=== PATIENT | male | born 1955 | race Caucasian/White ===

== ENCOUNTER 2019-12-06 13:10 | Emergency (ER) | payer BC, SELFPAY ==
[2019-12-06] VITALS (9 sets, daily range): BP systolic 77–111; BP diastolic 47–63; PULSE 42–66; RESP 12–20; TEMP 36.8; O2SAT 95–98
--- NOTE | ~2019-12-06 | XR_ITS ---
EXAMINATION: XR chest 2V DATE: 12/06/2019 14:31 INDICATION: Chest pain. TECHNIQUE: Frontal and lateral views of the chest were obtained. COMPARISON: Chest 2 views 06/09/2018 FINDINGS: There is mild atelectasis in lingula. No pleural effusion or pneumothorax. The heart size i s normal. IMPRESSION: 1. Mild atelectasis in lingula. Reviewed, dictated and finalized at location A. EILLANCE DIRECTOR
--- NOTE | 2019-12-06 13:14 | ECG_ITS ---
Measurements Intervals [place] Rate: 52 P: 5 [place]: 175 QRS: -15 QRSD: 106 T: 0 QT: 355 QTc: 332 Interpretive Statements SINUS BRADYCARDIA DELAYED PRECORDIAL R/S TRANSITION NONSPECIFIC T-WAVE ABNORMALITY- INFERIOR LEADS BORDERLINE ECG Electronically Signed On 12-06-2019 14:17:04 WORD PROCESSOR TECHNICIAN by Eldon Winters D.O.
--- NOTE | 2019-12-06 13:16 | ED.CHESTPAIN ---
HPI - Chest Pain General Chief Complaint: Chest Pain Stated Complaint: sob chest pain Time Seen by Provider: 12/06/19 13:16 Source: patient Mode of arrival: ambulatory Limitations: no limitations History of Present Illness HPI narrative: Patient states that he had 2 very stressful situations this morning related to his job. Following these he tried to do different maneuvers as he had in the past for episodes of going into atrial fibrillations. None of them seem to help. He says he just feels a pressure on his chest. Nothing makes it worse or better. Mildly short of breath but otherwise no other associated symptoms. MD complaint: chest heaviness Pertinent past history: other (AFIB) Onset (ago): hour(s) (2) Timing of current episode: constant Prior episodes: Yes Onset: during rest Pain location: substernal Pain radiation: left arm Severity: moderate Quality: heaviness Relieving factors: nothing Exacerbating factors: nothing Treatment prior to arrival: none Related Data Home Medications Medication Instructions Recorded Confirmed amiodarone 200 mg PO DAILY 12/06/19 12/06/19 atorvastatin 10 mg PO DAILY 12/06/19 12/06/19 olmesartan 40 mg PO DAILY 12/06/19 12/06/19 warfarin 5 mg PO 5XW 12/06/19 12/06/19 warfarin 7.5 mg PO 2XW 12/06/19 12/06/19 Allergies Allergy/AdvReac Type Severity Reaction Status Date / Time No Known Allergies Allergy Unknown Unverified 06/09/18 17:07 Review of Systems Constitutional: Constitutional: Denies chills and Denies fever(s) Eyes: Eyes: Reports no additional eye complaints ENT: Reports system reviewed and no additional complaints, except as documented Respiratory: Respiratory: Denies chest congestion, Denies cough, Denies dyspnea and Denies wheezing Gastrointestinal: Gastrointestinal: Denies diarrhea, Denies nausea and Denies vomiting Musculoskeletal: Musculoskeletal: Reports no additional musculoskeletal complaints Neurologic: Reports dizziness and Denies syncope Psychiatric: Psychiatric: Reports no additional psychiatric complaints Endocrine: Endocrine: Reports no additional endocrine complaints [facility] Past Medical History Medical History (Updated 12/06/19 @ 15:38 by Estuardo Jackman MD) Atrial fibrillation Hyperlipidemia Hypertension Surgical History Surgical History (Updated 12/06/19 @ 15:38 by Estuardo Jackman MD) History of ankle surgery Hx of inguinal hernia surgery Social History Social History (Updated 12/06/19 @ 15:40 by Estuardo Jackman MD) Smoking status: Never smoker Alcohol intake: current Alcohol use details: Occasional Substance use: never Gender identity (if verbalized by the patient): Male Exam Const: General: healthy appearing and no acute distress Nutritional Appearance: well nourished Orientation/consciousness: patient oriented x3 HENMT: Head: normal to inspection Ears: external ears normal General nose exam: Normal external nose present Face and sinus: normal facial exam Eyes: Conjunctivae: conjunctivae normal Pupils: Equal, round and reactive pupils present EOM: EOMs intact bilaterally Neck: Neck: normal visual inspection and no lymphadenopathy Chest: Chest palpation & inspection: normal inspection of the chest Resp: Effort & Inspection: normal respiratory effort Auscultation: clear to auscultation bilaterally Cardio: Rate: bradycardic Rhythm: regular rhythm Heart sounds: no murmurs GI: Auscultation: normal bowel sounds Back/Spine/Pelvis: Cervical Spine: cervical ROM normal Thoracic/Lumbar Spine: thoraco-lumbar ROM normal Skin: General skin exam: normal color Rashes: no rashes Neuro: General: patient oriented x3, moves all extremities and no focal motor deficits Speech: normal speech Extrem: General: normal to inspection and no clubbing, cyanosis or edema Psych: Appearance: grossly normal and well kempt Mental Status: mental status grossly normal Affect: normal affect Attitude: cooperative Tho
--- NOTE | 2019-12-06 14:00 | PC.NURSE ---
In to re-eval pt 2/ noted low BP reading 84/48. Repeat BP 89/47. Pt sitting on side of gurney, c/o not feeling well. When probed further pt states he is feeling lightheaded. Instructed to lay down on gurney, put phone down, and attempt to relax. BP repeated, 77/48. Dr Jackman aware. Verbal order for NS 1 liter w/o at this time. Pt now states that this am after sx began his checked his BP, 89/40. Pt then went to see a friend who is an RN who checked his BP, 120s/70s.
[2019-12-06 14:03] LABS: Basophils Absolute Auto 0.03 K/mm3 (0.00-0.10); Basophils Percent Auto 0.4 % (0.0-1.0); Eosinophils Absolute Auto 0.11 K/mm3 (0.02-0.50); Eosinophils Percent Auto 1.5 % (1.0-6.0); Hematocrit 42.4 % (40.0-54.0); Hemoglobin 14.7 g/dL (14.0-18.0); Immature Granulocyte Absolute 0.02 K/mm3 (0.00-0.00); Immature Granulocyte Percent A 0.3 % (0.0-0.0); Lymphocytes Absolute Auto 1.65 K/mm3 (1.10-4.50); Mean Corpuscular HGB Conc 34.7 g/dL (32.0-36.0); Mean Corpuscular Hemoglobin 32.2 pg (27.0-31.0); Mean Corpuscular Volume 92.8 fL (78.0-102.0); Mean Platelet Volume 10.6 fl (8.7-11.0); Monocytes Absolute Auto 0.57 K/mm3 (0.10-0.90); Monocytes Percent Auto 7.9 % (2.0-11.0); Neutrophils Absolute Auto 4.8 K/mm3 (1.7-7.2); Neutrophils Percent Auto 66.9 % (50.0-70.0); Platelet Count Result 189 K/mm3 (150-420); Red Blood Count 4.57 M/mm3 (4.70-6.10); Red Cell Distribution Width 12.7 % (11.6-14.4); White Blood Count 7.2 K/mm3 (4.8-10.8)
[2019-12-06] MEDS: SODIUM CHLORIDE 0.9% IV 1,000 ML 999 ML IV CONT (14:05)
[2019-12-06 14:16] LABS: INR 2.4; Prothrombin Time 24.5 Seconds (9.64-11.0)
[2019-12-06 14:29] LABS: Alanine Aminotransferase 36 U/L (16-63); Albumin Level 3.9 g/dL (3.4-5.0); Alkaline Phosphatase 65 U/L (46-116); Anion Gap 13.1 mmol/L (7-16); Aspartate Amino Transferase 22 U/L (15-37); Bilirubin,Total 0.5 mg/dL (0.00-1.00); Blood Urea Nitrogen 18 mg/dL (7-18); CRP 0.3 mg/dL (0.0-0.9); Calcium 8.5 mg/dL (8.5-10.1); Carbon Dioxide 24 mmol/L (21-32); Chloride 105 mmol/L (98-108); Estimated CRCL calculation 64 ml/min; Estimated Glomerular Filt Rate > 60; Glucose 116 mg/dL (70-99); Magnesium 2.3 mg/dL (1.8-2.4); Osmolality Calculated 288 mOsm/kg (285-295); Potassium 4.1 mmol/L (3.5-5.1); Sodium 138 mmol/L (136-145); Total Protein 7.2 g/dL (6.4-8.2)
[2019-12-06 14:32] LABS: Troponin I < 0.02 ng/mL (0.00-0.056)
[2019-12-06 14:50] LABS: Thyroid Stimulating Hormone 5.38 uIU/mL (0.36-3.74)
== END 2019-12-06 15:37 | disposition home or self-care (01) ==
PROVIDERS: Emergency Provider Emergency Medicine; PCP Internal Medicine
DX: I49.1 Atrial premature depolarization (principal); E03.9 Hypothyroidism, unspecified
CPT/HCPCS: 36415; 71046; 80053; 83735; 84443; 84484; 85025; 85610; 86140; 93005; 96360; 99283; 99284; J7030

== ENCOUNTER 2020-03-22 20:53 | Emergency (ER) | payer BC, SELFPAY ==
[2020-03-22 21:11] VITALS: BP 119/72; PULSE 65; RESP 18; TEMP 36.2; O2SAT 96
--- NOTE | 2020-03-22 21:29 | ED.ABDPAIN ---
HPI - Abdominal Pain General Chief Complaint: Abdominal Pain Stated Complaint: tightness in the chest Source: patient Mode of arrival: ambulatory History of Present Illness HPI narrative: Abrupt onset of sharp, twisting pain in his epigastric area which increased over a 2 minutes, was severe x 2 miniutes, the eased up over the next 2 minutes. There were no associated symptoms. He's never had this before. He ate a light snack for super. The pain was non-radiating. He has had atrial fibrillation for 17 years. Recently saw a electroplater helper, workup for CAD was negative. Related Data Home Medications Medication Instructions Recorded Confirmed amiodarone 200 mg PO DAILY 12/06/19 03/22/20 atorvastatin 10 mg PO DAILY 12/06/19 03/22/20 olmesartan 40 mg PO DAILY 12/06/19 03/22/20 warfarin 5 mg PO 5XW 12/06/19 03/22/20 warfarin 7.5 mg PO 2XW 12/06/19 03/22/20 levothyroxine 50 mcg PO DAILY 03/22/20 03/22/20 Allergies Allergy/AdvReac Type Severity Reaction Status Date / Time No Known Allergies Allergy Unknown Unverified 06/09/18 17:07 Review of Systems Cardiovascular: Cardiovascular: Denies chest pain and Denies radiating jaw, neck or arm pain Respiratory: Respiratory: Denies cough, Denies dyspnea and Denies wheezing Gastrointestinal: Gastrointestinal: Denies constipation, Denies diarrhea, Denies nausea and Denies vomiting Musculoskeletal: Musculoskeletal: Denies muscle cramps PMFSH Past Medical History Medical History (Updated 03/23/20 @ 00:00 by Background Daemon) Atrial fibrillation Hyperlipidemia Hypertension Surgical History Surgical History (Updated 12/06/19 @ 15:38 by Estuardo Jackman MD) History of ankle surgery Hx of inguinal hernia surgery Social History Social History (Updated 03/23/20 @ 04:35 by Maury Bundy MD) Smoking status: Never smoker Alcohol intake: current Substance use: never 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 Gender identity (if verbalized by the patient): Male Exam Const: General: no acute distress Orientation/consciousness: patient oriented x3 HENMT: Mouth: Yes moist mucous membranes Eyes: Conjunctivae: conjunctivae normal Neck: Neck: no lymphadenopathy Chest: Chest palpation & inspection: normal inspection of the chest Resp: Auscultation: clear to auscultation bilaterally Cardio: Rhythm: abnormal rhythm Heart sounds: no murmurs Other: 2+ femoral pulses GI: GI Palp: Yes Soft to palpation, No Tenderness to palpation present (GI), No Guarding due to palpation present (GI) and No Rigid due to palpation Auscultation: normal bowel sounds Other: no pulsatile abd. mass. No bruit. : General: Yes no CVA tenderness Skin: General skin exam: normal color Rashes: no rashes Neuro: General: moves all extremities and no focal motor deficits Extrem: General: normal to inspection and no pedal edema Course Course Emergency Course: No evidence of a serious underlying etiology. This was explained to the patient with precautions given to follow up if needed. Vital Signs Vital signs: Vital Signs Temperature 36.2 C L 03/22/20 21:11 Pulse Rate 65 03/22/20 21:11 Respiratory Rate 18 03/22/20 21:11 Blood Pressure 119/72 03/22/20 21:11 Pulse Oximetry 96 03/22/20 21:11 Temperature 36.2 C L 03/22/20 21:11 Pulse Rate 65 03/22/20 21:11 Respiratory Rate 18 03/22/20 22:49 Blood Pressure 146/76 H 03/22/20 22:49 Pulse Oximetry 98 03/22/20 22:49 MDM - Abdominal Pain MDM Narrative Medical decision making narrative: No evidence to suggest dissecting aneurism. Blood pressure x 12 years has been controlled. No hx of AAA. No pancreatitis. This could be biliary colic, initial episode. Differential Diagnosis Differential diagnosis: Likely gastroenteritis, pancreatitis, small bowel obstruction and other (gallbladder stone, muscle wall strain, prolonged INR and bleeding into abdominal site. ) Lab Data
--- NOTE | 2020-03-22 21:37 | ECG_ITS ---
Measurements Intervals [place] Rate: 67 P: [place]: 0 QRS: -34 QRSD: 109 T: 0 QT: 209 QTc: 222 Interpretive Statements ATRIAL FLUTTER/TACHYCARDIA LEFT AXIS DEVIATION BASELINE ARTIFACT- I ABNORMAL ECG Electronically Signed On 03-23-2020 8:18:12 CDT by Eldon Winters D.O.
[2020-03-22 22:14] LABS: Hematocrit 40.5 % (40.0-54.0); Hemoglobin 13.7 g/dL (14.0-18.0); Mean Corpuscular HGB Conc 33.8 g/dL (32.0-36.0); Mean Corpuscular Hemoglobin 31.7 pg (27.0-31.0); Mean Corpuscular Volume 93.8 fL (78.0-102.0); Mean Platelet Volume 10.7 fl (8.7-11.0); Platelet Count Result 153 K/mm3 (150-420); Red Blood Count 4.32 M/mm3 (4.70-6.10); Red Cell Distribution Width 12.4 % (11.6-14.4); White Blood Count 5.5 K/mm3 (4.8-10.8)
[2020-03-22 22:29] LABS: Add Urine Microscopic? YES; Appearance Urine Clear (Clear); Bilirubin Urine Negative (Negative); Blood Urine Negative (Negative); Color Urine Yellow (Yellow); Glucose Urine UA Negative (Negative); Ketones Urine Trace (Negative); Leukocyte Esterase Ur Negative (Negative); Nitrate Urine Negative (Negative); Protein Urine Negative (Negative); Specific Grav Ur 1.025 (1.010-1.020)
[2020-03-22 22:33] LABS: INR 2.4; Prothrombin Time 24.4 Seconds (9.64-11.0)
[2020-03-22 22:35] LABS: Alanine Aminotransferase 30 U/L (16-63); Albumin Level 3.5 g/dL (3.4-5.0); Alkaline Phosphatase 61 U/L (46-116); Anion Gap 7.7 mmol/L (7-16); Aspartate Amino Transferase 22 U/L (15-37); Bilirubin,Total 0.3 mg/dL (0.00-1.00); Blood Urea Nitrogen 15 mg/dL (7-18); Calcium 8.3 mg/dL (8.5-10.1); Carbon Dioxide 31 mmol/L (21-32); Chloride 107 mmol/L (98-108); Estimated CRCL calculation 73 ml/min; Estimated Glomerular Filt Rate > 60; Glucose 100 mg/dL (70-99); Lipase 123 U/L (73-393); Osmolality Calculated 294 mOsm/kg (285-295); Potassium 3.7 mmol/L (3.5-5.1); Sodium 142 mmol/L (136-145); Total Protein 6.4 g/dL (6.4-8.2)
[2020-03-22 22:37] LABS: RBC Urine None seen /hpf (0-2); WBC Urine None seen /hpf (0-3)
[2020-03-22 22:38] LABS: Bacteria Urine None seen /hpf; Mucus Urine Moderate /lpf; Squamous Epithelial Cell Urine Rare /hpf (Few)
[2020-03-22 22:39] LABS: Troponin I < 0.02 ng/mL (0.00-0.056)
[2020-03-22 22:49] VITALS: BP 146/76; RESP 18; O2SAT 98
== END 2020-03-22 23:03 | disposition home or self-care (01) ==
PROVIDERS: Emergency Provider Family Medicine; PCP Internal Medicine
DX: R10.13 Epigastric pain (principal)
CPT/HCPCS: 36415; 80053; 81001; 83690; 84484; 85027; 85610; 93005; 99283; 99284

== ENCOUNTER 2021-03-26 08:01 | Emergency (ER) | payer MEDICARE, SELFPAY ==
[2021-03-26 08:15] VITALS: BP 109/77; PULSE 66; RESP 18; TEMP 36.9; O2SAT 99
--- NOTE | 2021-03-26 08:28 | ED.SKABFB ---
HPI - Skin/Abscess/Foreign Bdy General Chief complaint: Skin/Abscess/Foreign Body Stated complaint: Has a Tic Time Seen by Provider: 03/26/21 08:28 Source: patient History of Present Illness HPI narrative: PATIENT PRESENTS WITH A TICK UNDER HIS RIGHT AXILLAE FOR THE PAST 4 DAYS. SOME REDNESS TO AREA NO BULLS EYE NO DRAINAGE PATIENT HAS NO FEVER NO OTHER COMPLAINTS. PATIENT IS UP TO DATE WITH TETANUS. Related Data Home Medications Medication Instructions Recorded Confirmed amiodarone 200 mg PO DAILY 12/06/19 03/26/21 atorvastatin 10 mg PO DAILY 12/06/19 03/26/21 olmesartan 40 mg PO DAILY 12/06/19 03/26/21 warfarin 5 mg PO 5XW 12/06/19 03/26/21 warfarin 7.5 mg PO 2XW 12/06/19 03/26/21 levothyroxine 50 mcg PO DAILY 03/22/20 03/26/21 Allergies Allergy/AdvReac Type Severity Reaction Status Date / Time No Known Allergies Allergy Unknown Verified 03/26/21 08:28 Review of Systems Review of Systems: Narrative: CONSTITUTIONAL: Denies fever, chills, or sweats. EYES: Denies visual changes, redness, or discharge. ENT: Denies rhinorrhea, congestion, sore throat, or otalgia. CARDIOVASCULAR: Denies chest pain, palpitations, or edema. RESPIRATORY: Denies cough or dyspnea. GASTROINTESTINAL: Denies abdominal pain, nausea, vomiting, or diarrhea. GENITOURINARY: Denies dysuria or hematuria. SKIN: Denies rash or itching. MUSCULOSKELETAL: Denies back pain, joint pain, or myalgia. NEUROLOGIC: Denies headache, numbness, or weakness. PSYCHIATRIC: Denies anxiety or depression. 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 Gender identity (if verbalized by the patient): Male Comments At time of signature, agree with nursing past medical, surgical, social and family history. There is no relevant family history pertinent to the presenting complaint Exam Narrative: Exam Narrative: GENERAL: Well-appearing, well-nourished, and in no acute distress. HEAD: Normocephalic, atraumatic. EYES: PERRLA and EOMI. ENT: Nares clear, no rhinorrhea or epistaxis. Mucous membranes moist. NECK: Supple. CHEST: Clear to auscultation. No respiratory distress. HEART: Regular rate and rhythm. No murmur heard. Normal peripheral pulses. ABDOMEN: Soft, nontender, nondistended, normal active bowel sounds. EXTREMITIES: Normal range of motion. No edema. SKIN: Warm, dry, no rash. Tick embedded under right axilla NEURO: No focal deficits. Alert and oriented x3. [place] Coma Scale Eye Opening: Spontaneous 4 [place] Coma Scale Motor: Obeys Commands 6 [place] Coma Scale Verbal: Oriented 5 [place] Coma Scale Total 15 Course Vital Signs Vital signs: Vital Signs Temperature 36.9 C 03/26/21 08:15 Pulse Rate 66 03/26/21 08:15 Respiratory Rate 18 03/26/21 08:15 Blood Pressure 109/77 03/26/21 08:15 Pulse Oximetry 99 03/26/21 08:15 Temperature 36.9 C 03/26/21 08:15 Pulse Rate 66 03/26/21 08:15 Respiratory Rate 18 03/26/21 08:15 Blood Pressure 109/77 03/26/21 08:15 Pulse Oximetry 99 03/26/21 08:15 Critical dx considered and discussed with pt. Educated patient on red flag s/s and to go to ED if s/s occur. Discussed with pt when to return to [facility] or primary care provider. Pt gave verbal undertstanding, all questions were answered, and pt was agreeable to plan Procedures Foreign Body Removal Foreign Body #1: Foreign Body Removal Date: 03/26/21 Foreign Body Removal Time: 08:34 Time Out Performed: yes Site: right and other (
[2021-03-26] MEDS: LIDOCAINE, EPINEPHRINE, TETRACAINE VISCOUS SOLN 3 ML TOPICAL (08:30)
== END 2021-03-26 08:45 | disposition home or self-care (01) ==
PROVIDERS: Emergency Provider Nurse Practitioner Family; PCP Internal Medicine
DX: S40.861A Insect bite (nonvenomous) of right upper arm, initial encounter (principal); W57.XXXA Bitten or stung by nonvenomous insect and other nonvenomous arthropods, initial encounter; I48.91 Unspecified atrial fibrillation; E78.5 Hyperlipidemia, unspecified; I10 Essential (primary) hypertension
CPT/HCPCS: 99213; G0463

== ENCOUNTER 2022-06-08 15:55 | Emergency (ER) | payer MEDICARE, SELFPAY ==
--- NOTE | 2022-06-08 15:58 | ED.EXTPRO ---
HPI - Extremity Problem General Chief complaint: Extremity Injury, Upper Stated complaint: Right ring finger swollen pt is on warfinin Time Seen by Provider: 06/08/22 16:04 Source: patient and RN notes reviewed Mode of arrival: ambulatory Limitations: no limitations History of Present Illness HPI Narrative: patient states that he was at home working in the kitchen and suddenly he had swelling in his right ring finger and redness and pain over his right distal metacarpal at the MCP joint. He has some small puncture wounds on his right hand. He said he was working in the garden where he has roses this morning and may have gotten those puncture wounds 3-4 hours ago. He denies any fever chills. he is on Coumadin. He does not recall any trauma to the hand. MD Complaint: extremity swelling ( right ring finger) Pain Consistency: constant Location: right and upper extremity Quality: aching, dull and constant Radiation: distal Relieving factors: nothing Exacerbating factors: range of motion and palpation Associated symptoms: denies other symptoms Related Data Home Medications Medication Instructions Recorded Confirmed amiodarone 200 mg tablet 200 mg PO DAILY 12/06/19 06/08/22 atorvastatin 10 mg tablet 10 mg PO DAILY 12/06/19 06/08/22 olmesartan 40 mg tablet 40 mg PO DAILY 12/06/19 06/08/22 warfarin 5 mg tablet 5 mg PO 5XW 12/06/19 06/08/22 warfarin 7.5 mg tablet 7.5 mg PO 2XW 12/06/19 06/08/22 levothyroxine 50 mcg tablet 50 mcg PO DAILY 03/22/20 06/08/22 Allergies Allergy/AdvReac Type Severity Reaction Status Date / Time No Known Allergies Allergy Unknown Verified 06/08/22 16:06 Review of Systems Review of Systems: All systems reviewed & are unremarkable except as noted in HPI and below PMFSH Past Medical History Medical History Atrial fibrillation Hyperlipidemia Hypertension Surgical History Surgical History History of ankle surgery Hx of inguinal hernia surgery Social History Social History Smoking status: Never smoker Alcohol intake: current Alcohol use details: Occasional Substance use: never 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 Gender identity (if verbalized by the patient): Male Exam Const: General: healthy appearing, no acute distress and alert Nutritional Appearance: well nourished Orientation/consciousness: patient oriented x3 Limitations: no limitations HENMT: Head: normal to inspection Ears: external ears normal Eyes: Conjunctivae: conjunctivae normal Pupils: Equal, round and reactive pupils present EOM: EOMs intact bilaterally Neck: Neck: normal visual inspection Resp: Effort & Inspection: normal respiratory effort Auscultation: clear to auscultation bilaterally Cardio: Rate: regular rate Rhythm: regular rhythm GI: GI Palp: Yes Soft to palpation and No Tenderness to palpation present (GI) Auscultation: normal bowel sounds Back/Spine/Pelvis: Cervical Spine: cervical ROM normal Thoracic/Lumbar Spine: thoraco-lumbar ROM normal Skin: General skin exam: normal color Neuro: General: patient oriented x3, moves all extremities, no focal motor deficits and CN's II-XI intact bilaterally Speech: normal speech Gait exam (Neuro): Normal gait present Extrem: General: normal exam except as noted and no clubbing, cyanosis or edema Right upper extremity: Extremity exam: right hand abnormal to inspection joint swelling ( Fifth MCP), tenderness of the 4th digit at the MCP joint, at the proximal phalanx, at the middle phalanx and at the distal phalanx and of the 5th digit at the MCP joint, warmth of the 5th digit at the MCP joint, swelling of the 4th digit at the proximal phalanx and at the middle phalanx and puncture wound ( small at the base of the 5th MCP joint) Psych: Mental Status: mental status gross
[2022-06-08 16:00] VITALS: BP 145/90; PULSE 80; RESP 18; TEMP 36.6; O2SAT 97
[2022-06-08] MEDS: TETANUS,DIPHTHERIA,AC PERTUSSIS ADULT 0.5 ML (ADACEL) IM (16:31)
[2022-06-08 16:36] LABS: Basophils Absolute Auto 0.03 K/mm3 (0.00-0.10); Basophils Percent Auto 0.4 % (0.0-1.0); Eosinophils Absolute Auto 0.14 K/mm3 (0.02-0.50); Hematocrit 41.9 % (37.0-46.0); Immature Granulocyte Absolute 0.02 K/mm3 (0.00-0.00); Immature Granulocyte Percent A 0.3 % (0.0-0.0); Lymphocytes Percent Auto 26.9 % (18.0-42.0); Mean Corpuscular HGB Conc 33.4 g/dL (32.0-36.0); Mean Corpuscular Hemoglobin 31.8 pg (27.0-31.0); Mean Corpuscular Volume 95.2 fL (78.0-102.0); Mean Platelet Volume 10.1 fl (8.7-11.0); Monocytes Percent Auto 8.5 % (2.0-11.0); Neutrophils Absolute Auto 4.4 K/mm3 (1.7-7.2); Neutrophils Percent Auto 61.9 % (50.0-70.0); Platelet Count Result 189 K/mm3 (150-420); Red Cell Distribution Width 12.8 % (11.6-14.4); White Blood Count 7.1 K/mm3 (4.8-10.8)
[2022-06-08 16:53] LABS: Alanine Aminotransferase 35 U/L (16-63); Albumin Level 3.6 g/dL (3.4-5.0); Alkaline Phosphatase 74 U/L (46-116); Anion Gap 10 mmol/L (8-16); Aspartate Amino Transferase 24 U/L (15-37); Bilirubin,Total 0.4 mg/dL (0.00-1.00); Blood Urea Nitrogen 19 mg/dL (7-18); Calcium 8.5 mg/dL (8.5-10.1); Carbon Dioxide 25 mmol/L (21-32); Chloride 105 mmol/L (98-108); Estimated CRCL calculation 69 ml/min; Estimated Glomerular Filt Rate > 60; Glucose 112 mg/dL (70-99); Osmolality Calculated 293 mOsm/kg (285-295); Potassium 3.8 mmol/L (3.5-5.1); Sodium 140 mmol/L (136-145); Total Protein 6.6 g/dL (6.4-8.2)
[2022-06-08 16:55] LABS: CRP < 0.2 mg/dL (0.0-0.9); INR 4.1
[2022-06-08 17:04] VITALS: BP 141/87; PULSE 87; RESP 16; TEMP 36.6; O2SAT 97
== END 2022-06-08 17:10 | disposition home or self-care (01) ==
PROVIDERS: Emergency Provider Emergency Medicine; PCP Internal Medicine
DX: M79.89 Other specified soft tissue disorders (principal); T45.7X5A Adverse effect of anticoagulant antagonists, vitamin K and other coagulants, initial encounter; I48.91 Unspecified atrial fibrillation; E78.5 Hyperlipidemia, unspecified; I10 Essential (primary) hypertension
CPT/HCPCS: 36415; 80053; 84550; 85025; 85610; 86140; 90471; 90715; 99283

== ENCOUNTER 2022-12-20 19:06 | Emergency (ER) | payer MEDICARE, SELFPAY ==
[2022-12-20] VITALS (8 sets, daily range): BP systolic 121–138; BP diastolic 80–85; PULSE 50–62; RESP 14–20; TEMP 36.4–36.6; O2SAT 97–100
--- NOTE | ~2022-12-20 | XR_ITS ---
EXAMINATION: XR chest 2V Exam Date/Time: 12/20/2022 19:55 CDT HISTORY: MIDSTERNAL CHEST PAIN W/SOB, AFIB TODAY. Comparison: 12/06/2019. RESULT: Lines, tubes, and devices: None. Lungs and pleura: No pneumothorax or focal consolidation. Left midlung scar. Cardiomediastinal silhouette: Stable. Other: No acute osseous or upper abdominal finding. IMPRESSION: No acute cardiopulmonary process. Reviewed, dictated and finalized at location K.
--- NOTE | 2022-12-20 19:12 | ECG_ITS ---
Measurements Intervals [place] Rate: 54 P: 36 [place]: 159 QRS: 5 QRSD: 96 T: 11 QT: 354 QTc: 337 Interpretive Statements SINUS BRADYCARDIA ATRIAL PREMATURE COMPLEXES POSSIBLE LEFT ATRIAL ENLARGEMENT NONSPECIFIC T-WAVE ABNORMALITY- ANT/INF LEADS BASELINE ARTIFACT- I, II, III, AVR, AVL, AVF, V1 BORDERLINE ECG COMPARED TO ECG 03/22/2020 22:03:46 SINUS BRADYCARDIA NOW PRESENT T-WAVE ABNORMALITY NOW PRESENT Electronically Signed On 12-20-2022 20:47:19 CDT by Eldon Winters D.O.
--- NOTE | 2022-12-20 19:15 | ED.CHESTPAIN ---
HPI - Chest Pain General Chief Complaint: Chest Pain Stated Complaint: chest pain Short of breath Time Seen by Provider: 12/20/22 19:12 Source: patient and RN notes reviewed Mode of arrival: ambulatory Limitations: no limitations History of Present Illness HPI narrative: patient states that he was going up the stairs at home had sudden onset of chest heaviness and shortness of breath. He denied any associated nausea vomiting diaphoresis. There is no radiation of the pain. He rested and then walked out to the mailbox on level ground and had recurrence of his chest heaviness shortness of breath. He said it seems to be intermittent and so he came in for further evaluation. He has a history of atrial fibrillation hypothyroidism hyperlipidemia currently on Coumadin. MD complaint: chest heaviness Onset (ago): hour(s) (7) Timing of current episode: constant Onset: during exertion Pain location: substernal Pain radiation: none Severity: moderate Quality: heaviness Relieving factors: rest Exacerbating factors: exertion Associated symptoms: dyspnea Treatment prior to arrival: none Risk Factors Coronary artery disease risk factors: hypertension Related Data Home Medications Medication Instructions Recorded Confirmed amiodarone 200 mg tablet 200 mg PO DAILY 12/06/19 12/20/22 atorvastatin 10 mg tablet 10 mg PO DAILY 12/06/19 12/20/22 olmesartan 40 mg tablet 40 mg PO DAILY 12/06/19 12/20/22 warfarin 5 mg tablet 5 mg PO DAILY 12/06/19 12/20/22 levothyroxine 50 mcg tablet 50 mcg PO DAILY 03/22/20 12/20/22 Allergies Allergy/AdvReac Type Severity Reaction Status Date / Time No Known Allergies Allergy Unknown Verified 06/08/22 16:06 Review of Systems Review of Systems: All systems reviewed & are unremarkable except as noted in HPI and below Constitutional: Constitutional: Denies excessive sweating ENT: Denies dizziness Gastrointestinal: Gastrointestinal: Denies nausea and Denies vomiting [facility] Past Medical History Medical History (Updated 12/20/22 @ 20:12 by Estuardo Jackman MD) Atrial fibrillation Hyperlipidemia Hypertension Hypothyroidism Surgical History Surgical History History of ankle surgery Hx of inguinal hernia surgery Social History Social History Smoking status: Never smoker Alcohol intake: current Alcohol use details: Occasional Substance use: never 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 Gender identity (if verbalized by the patient): Male Exam Const: General: healthy appearing, no acute distress and alert Nutritional Appearance: well nourished Orientation/consciousness: patient oriented x3 Limitations: no limitations HENMT: Head: normal to inspection Ears: external ears normal Face and sinus: normal facial exam Mouth: Yes moist mucous membranes Eyes: Conjunctivae: conjunctivae normal Pupils: Equal, round and reactive pupils present EOM: EOMs intact bilaterally Neck: Neck: normal visual inspection Chest: Chest palpation & inspection: tenderness sternum ( at the base reproduces his pain) Resp: Effort & Inspection: normal respiratory effort Auscultation: clear to auscultation bilaterally Cardio: Rate: bradycardic Rhythm: regular rhythm GI: GI Palp: Yes Soft to palpation and No Tenderness to palpation present (GI) Auscultation: normal bowel sounds Back/Spine/Pelvis: Cervical Spine: cervical ROM normal Thoracic/Lumbar Spine: thoraco-lumbar ROM normal Skin: General skin exam: normal color Rashes: no rashes Neuro: General: patient oriented x3, moves all extremities, no focal motor deficits and CN's II-XI intact bilaterally Speech: normal speech Gait exam (Neuro): Normal gait present Extrem: General: normal to inspection and no clubbing, cyanosis or edema Psych: Mental Status: mental status grossly normal Affect: normal affect Attitude
[2022-12-20 19:33] LABS: Basophils Absolute Auto 0.05 K/mm3 (0.00-0.10); Basophils Percent Auto 0.7 % (0.0-1.0); Eosinophils Absolute Auto 0.14 K/mm3 (0.02-0.50); Hematocrit 37.2 % (37.0-46.0); Hemoglobin 12.6 g/dL (12.4-15.3); Immature Granulocyte Absolute 0.02 K/mm3 (0.00-0.00); Immature Granulocyte Percent A 0.3 % (0.0-0.0); Lymphocytes Absolute Auto 2.29 K/mm3 (1.10-4.50); Lymphocytes Percent Auto 33.2 % (18.0-42.0); Mean Corpuscular HGB Conc 33.9 g/dL (32.0-36.0); Mean Corpuscular Hemoglobin 32.8 pg (27.0-31.0); Mean Corpuscular Volume 96.9 fL (78.0-102.0); Mean Platelet Volume 9.7 fl (8.7-11.0); Monocytes Absolute Auto 0.67 K/mm3 (0.10-0.90); Monocytes Percent Auto 9.7 % (2.0-11.0); Neutrophils Absolute Auto 3.7 K/mm3 (1.7-7.2); Neutrophils Percent Auto 54.1 % (50.0-70.0); Platelet Count Result 199 K/mm3 (150-420); Red Blood Count 3.84 M/mm3 (4.70-6.10); Red Cell Distribution Width 12.9 % (11.6-14.4); White Blood Count 6.9 K/mm3 (4.8-10.8)
[2022-12-20] MEDS: ASPIRIN 81 MG CHEWABLE TABLET 324 MG PO (19:37)
[2022-12-20 19:48] LABS: D Dimer 0.19 mg/L (0.19-0.50); INR 3.3; Partial Thromboplastin Time 41.6 SEC (23.90-30.70); Prothrombin Time 32.9 Seconds (9.50-12.10)
[2022-12-20 19:51] LABS: Alanine Aminotransferase 39 U/L (16-63); Albumin Level 3.4 g/dL (3.4-5.0); Alkaline Phosphatase 74 U/L (46-116); Anion Gap 7 mmol/L (8-16); Aspartate Amino Transferase 25 U/L (15-37); Bilirubin,Total 0.2 mg/dL (0.00-1.00); Blood Urea Nitrogen 19 mg/dL (7-18); Calcium 8.3 mg/dL (8.5-10.1); Carbon Dioxide 29 mmol/L (21-32); Chloride 105 mmol/L (98-108); Estimated CRCL calculation 66 ml/min; Estimated Glomerular Filt Rate > 60; Glucose 107 mg/dL (70-99); Osmolality Calculated 294 mOsm/kg (285-295); Sodium 141 mmol/L (136-145); Total Protein 6.6 g/dL (6.4-8.2); Troponin I 10.1 ng/L (0.00-60.4)
== END 2022-12-20 20:23 | disposition home or self-care (01) ==
PROVIDERS: Emergency Provider Emergency Medicine; PCP Internal Medicine
DX: R07.89 Other chest pain (principal); I48.91 Unspecified atrial fibrillation; E78.5 Hyperlipidemia, unspecified; I10 Essential (primary) hypertension; E03.9 Hypothyroidism, unspecified; Z79.01 Long term (current) use of anticoagulants
CPT/HCPCS: 36415; 71046; 80053; 84484; 85025; 85380; 85610; 85730; 93005; 99284; A9270

== ENCOUNTER 2023-04-30 16:14 | Emergency (ER) | payer MEDICARE, SELFPAY ==
--- NOTE | ~2023-04-30 | XR_ITS ---
EXAMINATION: XR chest 2V Exam Date/Time: 04/30/2023 16:53 CDT HISTORY: hypotension, lightheadness today hx a.fib Comparison: 12/20/2022. RESULT: Lines, tubes, and devices: None. Lungs and pleura: Left midlung scar, otherwise clear. Cardiomediastinal silhouette: Stable. Other: No acute osseous or upper abdominal finding. IMPRESSION: No acute cardiopulmonary process. Reviewed, dictated and finalized at location K.
[2023-04-30 16:14] VITALS: BP 122/72; PULSE 74; RESP 16; TEMP 36.6; O2SAT 97
[2023-04-30 16:30] VITALS: BP 118/77; PULSE 72; RESP 18; O2SAT 98
--- NOTE | 2023-04-30 16:33 | ED.GENADULT ---
HPI - General Adult General Chief complaint: Dizziness Stated complaint: low blood pressure, light-headed Time Seen by Provider: 04/30/23 16:33 Source: patient and family Mode of arrival: ambulatory Limitations: no limitations History of Present Illness HPI narrative: patient is a 67-year-old gentleman with noted home blood pressure values and the 70s systolic. He is on amiodarone and valsartan. Patient stopped his blood pressure medicine for the 1 day to see if that would help. He came to the ER for further evaluation today. Patient is having fatigue for the past week. He is also having some lightheaded / dizziness. patient said he is here for blood pressure check but I explained that he came to the emergency room and we need to do some further workup. Onset (ago): week(s) (1) Severity: mild Pain Consistency: intermittent Relieving factors: none Exacerbating factors: none Associated symptoms: malaise Treatments prior to arrival: none Related Data Home Medications Medication Instructions Recorded Confirmed amiodarone 200 mg tablet 200 mg PO DAILY 12/06/19 04/30/23 atorvastatin 10 mg tablet 10 mg PO DAILY 12/06/19 04/30/23 olmesartan 40 mg tablet 40 mg PO DAILY 12/06/19 04/30/23 warfarin 5 mg tablet 5 mg PO DAILY 12/06/19 04/30/23 levothyroxine 50 mcg tablet 50 mcg PO DAILY 03/22/20 04/30/23 Allergies Allergy/AdvReac Type Severity Reaction Status Date / Time No Known Allergies Allergy Unknown Verified 04/30/23 16:23 Review of Systems Review of Systems: All systems reviewed & are unremarkable except as noted in HPI and below Constitutional: Constitutional: Reports no additional constitutional complaints Eyes: Eyes: Reports no additional eye complaints ENT: Reports system reviewed and no additional complaints, except as documented Cardiovascular: Cardiovascular: Reports no additional cardiovascular complaints Respiratory: Respiratory: Reports no additional respiratory complaints Gastrointestinal: Gastrointestinal: Reports no additional gastrointestinal complaints Genitourinary: Genitourinary: Reports no additional male genitourinary complaints Musculoskeletal: Musculoskeletal: Reports no additional musculoskeletal complaints Integumentary/Breasts: Skin/Breast: Reports system reviewed and no additional complaints, except as docu Neurologic: Reports system reviewed and no additional complaints, except as documented Psychiatric: Psychiatric: Reports no additional psychiatric complaints Endocrine: Endocrine: Reports no additional endocrine complaints Hematologic/Lymphatic: Hematologic/Lymphatic: Reports no additional hematologic/lymphatic complaints Allergic/Immunologic: Allergic/Immunologic: Reports no additional allergic/immunologic complaints [facility] Past Medical History Medical History Atrial fibrillation Hyperlipidemia Hypertension Hypothyroidism Surgical History Surgical History History of ankle surgery Hx of inguinal hernia surgery Social History Social History Smoking status: Never smoker Alcohol intake: current Alcohol use details: Occasional Substance use: never 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 Gender identity (if verbalized by the patient): Male Exam Const: General: cooperative, healthy appearing and comfortable HENMT: Head: normal to inspection and No palpable skull fracture present Ears: hearing grossly normal bilaterally Face/Nose/Sinus: Normal external nose present Face and sinus: normal facial exam Mouth: Yes Normal oral and palatal mucosa present Teeth and gingiva: dentition normal Throat: posterior oropharynx normal Eyes: General: appearance normal, both eyes and all related structures Neck: Neck: normal visual inspection Chest: Chest palpation & inspection:
[2023-04-30 16:45] VITALS: BP 103/75; PULSE 59; RESP 18; O2SAT 99
[2023-04-30 17:00] VITALS: BP 103/70; PULSE 65; RESP 16; O2SAT 98
[2023-04-30 17:15] VITALS: BP 110/80; PULSE 62; RESP 16; O2SAT 98
[2023-04-30 17:25] VITALS: BP 110/79
== END 2023-04-30 17:25 | disposition left against medical advice (07) ==
LOC: CHSED 16:54
PROVIDERS: Emergency Provider Emergency Medicine; PCP Internal Medicine
DX: I95.9 Hypotension, unspecified (principal); I48.91 Unspecified atrial fibrillation; E78.5 Hyperlipidemia, unspecified; I10 Essential (primary) hypertension; E03.9 Hypothyroidism, unspecified; Z79.01 Long term (current) use of anticoagulants
CPT/HCPCS: 71046; 93005; 99283

== ENCOUNTER 2024-06-27 19:38 | Emergency (ER) | payer MEDICARE, SELFPAY ==
[2024-06-27] VITALS (11 sets, daily range): BP systolic 125–159; BP diastolic 75–101; PULSE 60–81; RESP 12–20; TEMP 36.4–36.7; O2SAT 95–97
--- NOTE | ~2024-06-27 | CT_ITS ---
EXAMINATION: CT brain wo con DATE: 06/27/2024 20:19 INDICATION: vision disorder, pt see white light 12+ hour ago . TECHNIQUE: Computed tomography (CT) of the head was performed without intravenous contrast. The mA wa s adjusted according to patient size. Iterative reconstruction technique was employed. The dose-lengt h product was 681.00 mGy-cm. COMPARISON: None. FINDINGS: No acute intracranial hemorrhage or extra-axial fluid collection. No hydrocephalus, mass, or herniation. No acute ischemic infarct. Unremarkable dural venous sinus attenuation. No acute osseous abnormality. The aerated spaces are clear. Mild atrophy and chronic white matter change. Atherosclerotic intracranial calcification. Bilateral b eleni ganglia calcifications. IMPRESSION: No acute intracranial process. Reviewed, dictated and finalized at location K.
--- NOTE | 2024-06-27 19:50 | ED.GENADULT ---
HPI - General Adult General Chief complaint: Neuro Symptoms/Deficit Stated complaint: vision issues Time Seen by Provider: 06/27/24 19:50 Source: patient Mode of arrival: ambulatory Limitations: no limitations History of Present Illness HPI narrative: Patient noticed that he have intermittent flash light at the right visual field of the right eye, noticed at 3:00 a.m. this morning more noticeable at dark. Worse with moving eyes. Patient report having history of floaters, today the floaters are stationary. He denies any fever, chills, nausea, vomiting, headache or focal neuro deficit. Patient report having intermittent flash slight like this but does not last all day long Related Data Home Medications Medication Instructions Recorded Confirmed amiodarone 200 mg tablet 200 mg PO DAILY 12/06/19 06/27/24 atorvastatin 10 mg tablet 10 mg PO DAILY 12/06/19 06/27/24 olmesartan 40 mg tablet 40 mg PO DAILY 12/06/19 06/27/24 warfarin 5 mg tablet 5 mg PO DAILY 12/06/19 06/27/24 levothyroxine 50 mcg tablet 50 mcg PO DAILY 03/22/20 06/27/24 Allergies Allergy/AdvReac Type Severity Reaction Status Date / Time No Known Allergies Allergy Unknown Verified 06/27/24 20:26 Review of Systems Review of Systems: All systems reviewed & are unremarkable except as noted in HPI and below PMFSH Past Medical History Medical History Atrial fibrillation Hyperlipidemia Hypertension Hypothyroidism Surgical History Surgical History History of ankle surgery Hx of inguinal hernia surgery Social History Social History Smoking status: Never smoker Alcohol intake: current Alcohol use details: Occasional Substance use: never 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 Gender identity (if verbalized by the patient): Male Exam Narrative: General appearance: Well-developed, well-nourished Skin: Normal color Head: Normocephalic, nontraumatic Eyes: Clear conjunctiva ENT: Oropharynx normal, ears normal, nose normal Neck: Supple, nontender Chest and respiratory: Airway patent, no respiratory distress, no accessory muscle use Heart: Regular rate/rhythm Abdomen: Soft, nontender, no organomegaly, quiet bowel sounds Vascular: Normal peripheral pulses, normal capillary refill. Musculoskeletal: Normal range of motion, nontender back Neurologic: Alert and oriented ?3, ORDER PLANNER is normal as tested, no gross motor deficit Course Consultations Consultation #1: DR WHITE DOCKET CLERK AT [facility] WHO ACCEPTED PATIENT TRANSFER TO THE ED Date: 06/27/24 Time: 21:26 Consultation #2: DR STEPHENSON EMERGENCY ROOM PHYSICIAN WHO ACCEPTED PATIENT TRANSFER Date: 06/27/24 Time: 21:37 Vital Signs Vital signs: Vital Signs Temperature 36.7 C 06/27/24 19:39 Pulse Rate 78 06/27/24 19:39 Respiratory Rate 18 06/27/24 19:39 Blood Pressure 159/101 H 06/27/24 19:39 Pulse Oximetry 96 06/27/24 19:39 Oxygen Delivery Room Air 06/27/24 19:39 Temperature 36.4 C 06/27/24 21:16 Pulse Rate 65 06/27/24 21:16 Respiratory Rate 15 06/27/24 21:16 Blood Pressure 129/83 06/27/24 21:16 Pulse Oximetry 97 06/27/24 21:16 Oxygen Delivery Room Air 06/27/24 21:16 Medical Decision Making MDM Narrative Medical decision making narrative: patient came to the ED with intermittent flash of light right visual field laterally for the last 18 hours. Vital signs showed blood pressure 159/101 Physical examination showed irregular heartbeats, normal rate, DIFFERENTIA
--- NOTE | 2024-06-27 20:03 | ECG_ITS ---
Test Date: 2024-06-27 20:19:47 Measurements Intervals [place] Rate: 69 P: 0 PA: 0 QRS: -16 QRSD: 102 T: 9 QT: 441 QTc: 476 Interpretive Statements ATRIAL FLUTTER WITH NORMAL VENTRICULAR RESPONSE LOW QRS VOLTAGE IN PRECORDIAL LEADS BORDERLINE R WAVE PROGRESSION, ANTERIOR LEADS BASELINE ARTIFACT- I, III, AVR, AVL, AVF ABNORMAL ECG No previous ECG available for comparison Electronically Signed On 06-28-2024 05:36:42 CDT by Eldon Winters D.O.
--- NOTE | 2024-06-27 20:09 | PC.NURSE ---
to CT per wheelchair
[2024-06-27 20:27] LABS: Basophils Absolute Auto 0.04 K/mm3 (0.00-0.10); Basophils Percent Auto 0.7 % (0.0-1.0); Eosinophils Absolute Auto 0.16 K/mm3 (0.02-0.50); Eosinophils Percent Auto 2.8 % (1.0-6.0); Hematocrit 42.4 % (37.0-46.0); Hemoglobin 14.4 g/dL (12.4-15.3); Immature Granulocyte Absolute 0.01 K/mm3 (0.00-0.00); Immature Granulocyte Percent A 0.2 % (0.0-0.0); Lymphocytes Absolute Auto 1.77 K/mm3 (1.10-4.50); Lymphocytes Percent Auto 30.9 % (18.0-42.0); Mean Corpuscular Hemoglobin 32.1 pg (27.0-31.0); Mean Corpuscular Volume 94.4 fL (78.0-102.0); Mean Platelet Volume 10.3 fl (8.7-11.0); Monocytes Absolute Auto 0.61 K/mm3 (0.10-0.90); Monocytes Percent Auto 10.6 % (2.0-11.0); Neutrophils Absolute Auto 3.14 K/mm3 (1.70-7.20); Neutrophils Percent Auto 54.8 % (50.0-70.0); Platelet Count Result 165 K/mm3 (150-420); Red Blood Count 4.49 M/mm3 (4.70-6.10); White Blood Count 5.7 K/mm3 (4.8-10.8)
[2024-06-27 20:43] LABS: Partial Thromboplastin Time 38.1 Sec (23.9-30.70); Prothrombin Time 20.4 Seconds (9.50-12.1)
[2024-06-27 20:44] LABS: Alanine Aminotransferase 30 U/L (16-63); Albumin Level 3.6 g/dL (3.4-5.0); Alkaline Phosphatase 88 U/L (46-116); Anion Gap 5 mmol/L (4-12); Aspartate Amino Transferase 19 U/L (15-37); Bilirubin,Total 0.3 mg/dL (0.00-1.00); Blood Urea Nitrogen 13 mg/dL (7-18); Calcium 8.8 mg/dL (8.5-10.1); Carbon Dioxide 32 mmol/L (21-32); Chloride 105 mmol/L (98-108); Estimated CRCL calculation 69 ml/min; Estimated Glomerular Filt Rate > 60; Glucose 110 mg/dL (70-99); Osmolality Calculated 295 mOsm/kg (285-295); Potassium 3.7 mmol/L (3.5-5.1); Sodium 142 mmol/L (136-145)
--- NOTE | 2024-06-27 21:12 | PC.NURSE ---
amb to bathroom per self
== END 2024-06-27 22:46 | disposition short-term general hospital (02) ==
PROVIDERS: Emergency Provider Emergency Medicine; PCP Internal Medicine
DX: H53.19 Other subjective visual disturbances (principal); I48.91 Unspecified atrial fibrillation; E78.5 Hyperlipidemia, unspecified; E03.9 Hypothyroidism, unspecified; I10 Essential (primary) hypertension; Z79.899 Other long term (current) drug therapy; Z79.01 Long term (current) use of anticoagulants
CPT/HCPCS: 36415; 70450; 80053; 85025; 85610; 85730; 93005; 99285

== ENCOUNTER 2024-09-10 11:24 | Outpatient (CLI) | payer MEDICARE, SELFPAY ==
--- NOTE | ~2024-09-10 | XR_ITS ---
AP and oblique views of the left ribs Clinical History: Pain Findings: No rib fracture is seen. Osseous alignment is anatomic. Lungs are clear, without focal cons olidation or pleural effusion. Cardiomediastinal contour is within normal limits. Soft tissues are un remarkable. Impression: No rib fracture is seen. Reviewed, dictated and finalized at [facility]. ICULUM COUNSELOR Impression: No rib fracture is seen.
[2024-09-10 13:28] LABS: Basophils Percent Auto 0.5 % (0.2-1.2); Eosinophils Absolute Auto 0.1 K/mm3 (0-0.3); Hematocrit 44.8 % (42.0-52.0); Hemoglobin 15.1 g/dL (14.0-18.0); Immature Granulocyte Absolute 0.01 K/mm3 (0.00-0.031); Immature Granulocyte Percent A 0.2 % (0-0.5); Lymphocytes Absolute Auto 1.72 K/mm3 (0.9-3.2); Lymphocytes Percent Auto 26.4 % (18.3-44.2); Mean Corpuscular HGB Conc 33.7 g/dl (32-36); Mean Corpuscular Hemoglobin 32.4 pg (26-34); Mean Corpuscular Volume 96.1 fl (80-100); Mean Platelet Volume 10.7 fl (7.4-10.4); Monocytes Absolute Auto 0.6 K/mm3 (0.1-0.6); Monocytes Percent Auto 8.4 % (2.6-8.5); Neutrophils Absolute Auto 4.1 K/mm3 (1.3-6.7); Neutrophils Percent Auto 62.5 % (45.5-73.1); Platelet Count Result 174 k/mm3 (150-375); Red Blood Count 4.66 M/mm3 (4.6-6.20); Red Cell Distribution Width 13.2 % (11.5-14.5); White Blood Count 6.5 K/mm3 (4.5-10.0)
[2024-09-10 13:46] LABS: Alanine Aminotransferase 39 U/L (6-50); Albumin Level 4.3 g/dL (3.5-5.1); Alkaline Phosphatase 81 U/L (38-126); Anion Gap 4 mmol/L (4-12); Aspartate Amino Transferase 38 U/L (17-59); Bilirubin,Total 0.5 mg/dL (0.2-1.3); Blood Urea Nitrogen 19 mg/dL (9-20); Calcium 8.9 mg/dL (8.4-10.2); Carbon Dioxide 30 mmol/L (22-30); Chloride 105 mmol/L (98-107); Cholesterol 183 mg/dL (0-200); Estimated Glomerular Filt Rate > 60; Glucose 84 mg/dL (65-110); HDL Direct 79 mg/dL; Potassium 4.4 mmol/L (3.4-5.0); Sodium 139 mmol/L (137-145); Triglycerides 101 mg/dL (<150)
[2024-09-10 13:58] LABS: LDL Cholesterol Direct 71 mg/dL
== END 2024-09-10 11:25 | disposition home or self-care (01) ==
PROVIDERS: PCP Internal Medicine; Visit Provider Internal Medicine
DX: R07.81 Pleurodynia (principal); E78.5 Hyperlipidemia, unspecified; Z79.899 Other long term (current) drug therapy
CPT/HCPCS: 36415; 71100; 80053; 80061; 85025

== ENCOUNTER 2024-12-02 13:51 | Emergency (ER) | payer MEDICARE, SELFPAY ==
[2024-12-02 13:59] VITALS: BP 105/79; PULSE 79; RESP 16; TEMP 36.6; O2SAT 97
--- NOTE | 2024-12-02 13:59 | ED.WOUNDLAC ---
HPI - Wound/Laceration General Chief Complaint: Wound/Laceration Stated Complaint: rr. hand swelling from nail puncture Time Seen by Provider: 12/02/24 13:59 Source: patient Mode of arrival: ambulatory Limitations: no limitations History of Present Illness HPI narrative: Patient is a 69-year-old male with a right thumb wound from a nail / screw yesterday while working on his house. He had a puncture wound and the nail screw came out but now it is red and inflamed and his tetanus is outdated. Onset (ago): day(s) ( One) Location: other ( right thumb base) Place: home Patient tetanus UTD: No Context: accidental Associated symptoms: pain and other ( redness and local inflammation) Treatments prior to arrival: other ( none) Related Data Home Medications ?Medication ?Instructions ?Recorded ?Confirmed ?Last Taken ?Type amiodarone 200 mg tablet 200 mg PO DAILY 12/06/19 06/27/24 06/27/24 History atorvastatin 10 mg tablet 10 mg PO DAILY 12/06/19 06/27/24 06/27/24 History olmesartan 40 mg tablet 40 mg PO DAILY 12/06/19 06/27/24 06/27/24 History warfarin 5 mg tablet 5 mg PO DAILY 12/06/19 06/27/24 06/27/24 History levothyroxine 50 mcg tablet 50 mcg PO DAILY 03/22/20 06/27/24 06/27/24 History Allergies Allergy/AdvReac Type Severity Reaction Status Date / Time No Known Allergies Allergy Unknown Verified 10/30/24 18:20 Review of Systems Review of Systems: All systems reviewed & are unremarkable except as noted in HPI and below Constitutional: Constitutional: Reports no additional constitutional complaints Eyes: Eyes: Reports no additional eye complaints ENT: Reports system reviewed and no additional complaints, except as documented Cardiovascular: Cardiovascular: Reports no additional cardiovascular complaints Respiratory: Respiratory: Reports no additional respiratory complaints Gastrointestinal: Gastrointestinal: Reports no additional gastrointestinal complaints Genitourinary: Genitourinary: Reports no additional male genitourinary complaints Musculoskeletal: Musculoskeletal: Reports no additional musculoskeletal complaints Integumentary/Breasts: Skin/Breast: Reports system reviewed and no additional complaints, except as docu Neurologic: Reports system reviewed and no additional complaints, except as documented Psychiatric: Psychiatric: Reports no additional psychiatric complaints Endocrine: Endocrine: Reports no additional endocrine complaints Hematologic/Lymphatic: Hematologic/Lymphatic: Reports no additional hematologic/lymphatic complaints Allergic/Immunologic: Allergic/Immunologic: Reports no additional allergic/immunologic complaints [facility] Past Medical History Medical History Hypothyroidism Hyperlipidemia Hypertension Atrial fibrillation Surgical History Surgical History Hx of inguinal hernia surgery History of ankle surgery Social History Social History Smoking status: Never smoker Alcohol intake: current Alcohol use details: Occasional Substance use: never 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 Gender identity (if verbalized by the patient): Male Exam Const: General: healthy appearing Nutritional Appearance: well nourished Orientation/consciousness: patient oriented x3 HENMT: Head: normal to inspection Ears: external ears normal Face/Nose/Sinus: Normal external nose present Eyes: Conjunctivae: conjunctivae normal Pupils: Equal, round and reactive pupils present EOM: EOMs intact bilaterally Neck: Neck: normal visual inspection Chest: Chest palpation & inspection: normal inspection of the chest Resp: Effort & Inspection: normal respiratory effort and not labored Auscultation: clear to auscultation bilaterally and no crackles Cardio: Rate: regular rate Rhythm: regular rhythm Heart sounds: no murmurs GI: Inspection: non-distended GI Palp: Yes Soft to palpation and No Tenderness to palpation present (GI) Auscultation: normal bowel sounds Back/Spine/Pelvis: Back: no CVA tenderness Skin: General skin exam: normal color Rashes: no rashes Wounds: wound noted Other: right thumb has a nidus of infection where the nail/ croup punctured the skin with a slightly dark necrosis as well as a localized erythema extending from the base of the thumb to the top of the wrist with tenderness and swelling Neuro: General: patient oriented x3 Cranial nerves: Yes Nystagmus not present Speech: normal speech Extrem: General: normal to inspection Psych: Mental Status: mental status grossly normal Affect: normal affect Attitude: cooperative Course Vital Signs Vital signs: Vital Signs Temperature 36.6 C 12/02/24 13:59 Pulse Rate 79 12/02/24 13:59 Respiratory Rate 16 12/02/24 13:59 Blood Pressure 105/79 12/02/24 13:59 Pulse Oximetry 97 12/02/24 13:59 Oxygen Delivery Room Air 12/02/24 13:59 Temperature 36.6 C 12/02/24 13:59 Pulse Rate 79 12/02/24 13:59 Respiratory Rate 16 12/02/24 13:59 Blood Pressure 105/79 12/02/24 13:59 Pulse Oximetry 97 12/02/24 13:59 Oxygen Delivery Room Air 12/02/24 13:59 MDM - Wound/Laceration MDM Narrative Medical decision making narrative: patient is a 69-year-old male with a right thumb wound from a nail /screw yesterday with infection. We will give him a tetanus booster as well as antibiotics. Discharge Plan Discharge Clinical Impression: Puncture wound of hand, right Qualifiers: Encounter type: initial encounter Foreign body presence: without foreign body Qualified Code(s): S61.431A - Puncture wound without foreign body of right hand, initial encounter Patient Disposition: Home, Self-Care Condition: Stable Instructions: Antibiotic Form, Puncture Wound (ED) Patient Language: Khmer Prescriptions: New cephalexin 500 mg capsule 500 mg PO BID 10 Days Qty: 20 0RF No Action atorvastatin 10 mg tablet 10 mg PO DAILY amiodarone 200 mg tablet 200 mg PO DAILY warfarin 5 mg tablet 5 mg PO DAILY olmesartan 40 mg tablet 40 mg PO DAILY prednisone 20 mg tablet 40 mg PO DAILY 2 Days Qty: 4 0RF Coditussin AC 10-200 mg/5 mL liquid 10 ml PO Q6H PRN (Reason: cold symptoms) Qty: 200 0RF levothyroxine 50 mcg tablet 50 mcg PO DAILY Follow-up/Referrals: Dashawn,MD Sg [Primary Care Provider] - Time of Disposition: 14:09
[2024-12-02] MEDS: CEPHALEXIN 500 MG CAPSULE PO (14:14)
[2024-12-02] MEDS: TETANUS,DIPHTHERIA,AC PERTUSSIS ADULT 0.5 ML (ADACEL) IM (14:14)
--- NOTE | 2024-12-02 14:54 | PC.NURSE ---
On 12/02/24, the student, [LUKAS GONZALES ], provided care and completed [facility] documentation on this patient. I have reviewed the student's documentation and agree with the findings.
== END 2024-12-02 14:30 | disposition home or self-care (01) ==
LOC: CHSED 14:21
PROVIDERS: Emergency Provider Emergency Medicine; PCP Internal Medicine
DX: S61.031A Puncture wound without foreign body of right thumb without damage to nail, initial encounter (principal); E03.9 Hypothyroidism, unspecified; E78.5 Hyperlipidemia, unspecified; I10 Essential (primary) hypertension; I48.91 Unspecified atrial fibrillation; Z23 Encounter for immunization; W45.0XXA Nail entering through skin, initial encounter
CPT/HCPCS: 90471; 90715; 99283; A9270

== ENCOUNTER 2025-05-06 07:35 | Outpatient (CLI) | payer MEDICARE, SELFPAY ==
--- OUTSIDE RECORDS SUMMARY | 2025-05-06 07:38 | XMS_ITS | Referral Summary ---
Author Organization [facility] Physician Of [facility] 1 Address [address] [place] [address] Care Team Providers Care Personal Lines Sales Rep Name Role Phone Sg Tamez MD Primary Care Provider [phone] Allergies Active Allergy Reactions Criticality Noted Date Comments Lisinopril Cough Low 01/17/2020 Medications albuterol HFA (PROVENTIL HFA,VENTOLIN HFA,PROAIR HFA) 90 mcg/actuation inhaler albuterol sulfate HFA 90 mcg/actuation aerosol inhaler Active aluminum chloride (DRYSOL) 20 % external solution Hypercare 20 % topical solution Active clindamycin (CLEOCIN T) 1 % lotion 2 Active montelukast (SINGULAIR) 10 mg tablet montelukast 10 mg tablet Active warfarin (COUMADIN) 5 mg tablet warfarin 5 mg tablet TAKE ONE TABLET BY MOUTH EVERY DAY EXCEPT FOR ON TUESDAY AND TUESDAY TAKING 7.5 MG 0 Active amiodarone (PACERONE) 200 mg tablet Take 1 tablet (200 mg total) by mouth daily 0 Active atorvastatin (LIPITOR) 10 mg tablet Take 1 tablet (10 mg total) by mouth daily Active levothyroxine (SYNTHROID) 50 mcg tablet Take 1 tablet (50 mcg total) by mouth daily 4 Active olmesartan (BENICAR) 40 mg tablet Take 1 tablet (40 mg total) by mouth daily Active predniSONE (DELTASONE) 20 mg tablet TAKE 2 TABLETS BY MOUTH EVERY DAY FOR 2 DAYS Active doxycycline hyclate 100 mg capsule 5 Active Active Problems Problem Noted Date Diagnosed Date Positive colorectal cancer screening using Colog uard test 11/16/2024 Atrial fibrillation 06/03/2014 Overview (01/07/2017): AF - Atrial fibrillation Hypertension 06/03/2014 Overview (01/07/2017): HTN Social History Tobacco Use Types Packs/Day Years Used Date Smoking Tobacco: Never Smokeless Tobacco: Never Tobacco Cessation:Counseling Given: Not Answered AUDIT-C Answer Date Recorded Q1: How often do you have a drink containing alcohol? Never 11/19/2024 Q2: How many drinks containi ng alcohol do you have on a typical day when you are drinking? Patient does not drink Q3: How often do you have si x or more drinks on one occasion? Never 11/19/2024 Personal Safety Answer Date Recorded Have you ever been in or are you currently in a harmful physical or emotional relationship or is someone making you feel afraid or unsafe? Denies 11/20/2024 Sex and Gender Information Value Date Recorded Sex Assigned at Not on file Legal Sex Male 3:23 AM TAR WORKER Gender Identity Not on file Sexual Orientation Not on file Last Filed Vital Signs Vital Sign Reading Time Taken Comments Blood Pressure 129/89 11/20/2024 9:19 AM TAR WORKER Pulse 58 11/20/2024 9:19 AM TAR WORKER Temperature 36.8 C (98.3 F) 11/20/2024 9:19 AM TAR WORKER Respiratory Rate 16 11/20/2024 9:19 AM TAR WORKER Oxygen Saturation 95% 11/20/2024 9:19 AM TAR WORKER Inhaled Oxygen Concentration - - Weight 88 kg (194 lb 0.1 oz) 11/20/2024 7:11 AM TAR WORKER Height 175.3 cm (5' 9.02) 11/20/2024 7:11 AM CS T Body Mass Index 28.64 11/20/2024 7:11 AM TAR WORKER Plan of Treatment Not on file Procedures Procedure Name Priority Date/Time Associated Diagnosis Comments COLONOSCOPY 11/20/2024 7:21 AM TAR WORKER from Last 3 Months or Most Recently Relevant to Health Maintenance Results * Colonoscopy (11/20/2024 7:21 AM TAR WORKER) Anatomical Region Laterality Modality Other Narrative Procedure Note Elba Pineda MD - 11/20/2024 7:21 AM CST [facility] Patient Name: Judy Berrios Procedure Date: 11/20/2024 7:21 AM Date of : 1955 Admit Type: Outpatient Age: 69 Gender: Male Attending MD: Elba Pineda M.D. Room: [facility] 1 Note Status: Finalized Patient Profile: This is a 69 year old male. No family history ofcolon cancer. Noted positive Cologuard test. Procedure: Colonoscopy Indications: Screening for colorectal malignant neoplasm, Last colonoscopy 10 years ago Referring MD: Sg Tamez M.D. Providers: Elba Pineda M.D. Impression: - Two 3 to 4 mm polyps in the ascending colon andin the cecum, removed with a jumbo cold forceps.Resected and retrieved. - One 9 mm polyp at the hepatic flexure, removedwith a cold snare. Resected and retrieved. Clips (MR conditional) were placed. Clip railcar switcher: ScaleMP. - Five 3 to 4 mm polyps in the sigmoid colon and in the descending colon, removed with a jumbo cold forceps. Resected and retrieved. - Internal hemorrhoids. Recommendation: - Await pathology results. - Repeat colonoscopy in 3 years for surveillance. - Continue present medications. Medicines: Monitored Anesthesia Care Complications: No immediate complications. Estimated Blood Loss: Estimated blood loss: none. Procedure: Pre-Anesthesia Assessment: - Prior to the procedure, a History and Physicalwas performed, and patient medications and allergieswere reviewed. The patient's tolerance of previous anesthesia was also reviewed. The risks andbenefits of the procedure and the sedation options and risks were discussed with the patient. All questions were answered, and informed consent was obtained. Prior Anticoagulants: The patient has taken noanticoagulant or antiplatelet agents. ASA Grade Assessment: Per anesthesia note and evaluation. After reviewing the risks and benefits, the patient was deemed in satisfactory condition to undergo the procedure. The benefits, risks and alternatives of theprocedure and sedation were discussed and informed consentwas obtained. All questions were answered. Please referto the signed informed consent document in the medical record. The bowel preparation used was Miralax and bisacodyl tablets via split dose instruction. The scope was passed under direct vision. The Pediatric Colonoscope PCF-H190L [id number] was introducedthrough the anus and advanced to the the cecum, identifiedby appendiceal orifice and ileocecal valve. Thequality of the bowel preparation was good. Bowel prep was administered using a split dose. Findings: The perianal and digital rectal examinations were normal. The appendiceal orifice appeared normal. Two semi-sessile polyps were found in the ascending colon and cecum.The polyps were 3 to 4 mm in size. These polyps were removed with a jumbo cold forceps. Resection and retrieval were complete. A 9 mm polyp was found in the hepatic flexure. The polyp was sessile. The polyp was removed with a cold snare. Resection and retrieval were complete. To prevent bleeding after the polypectomy, three hemostatic clips were successfully placed (MR conditional). Clip railcar switcher: ScaleMP. There was no bleeding at the end of theprocedure. Five semi-sessile polyps were found in the sigmoid colon anddescending colon. The polyps were 3 to 4 mm in size. These polyps were removedwith a jumbo cold forceps. Resection and retrieval were complete. Internal hemorrhoids were found during retroflexion. The hemorrhoids were small. Electronically signed by Elba Pineda M.D. Elba Pineda M.D. 11/20/2024 8:58:21 AM Number of Addenda: 0 Note Initiated On: 11/20/2024 7:21 AM Procedure Code(s): --- Professional --- 02739, Colonoscopy, flexible; with removal of tumor(s), polyp(s), or other lesion(s) by snare technique 26605, 59, Colonoscopy, flexible; with biopsy, single or multiple Diagnosis Code(s): --- Professional --- Z12.11, Encounter for screening for malignant neoplasm of colon K64.8, Other hemorrhoids D12.2, Benign neoplasm of ascending colon D12.0, Benign neoplasm of cecum D12.5, Benign neoplasm of sigmoid colon D12.4, Benign neoplasm of descending colon D12.3, Benign neoplasm of transverse colon (hepatic flexure orsplenic flexure) CPT copyright 2020 [employer]. All rights reserved. The codes documented in this report are preliminary and upon dopeman reviewmay be revised to meet current compliance requirements. Recognized by the [employer] for promoting quality in endoscopy Elba Pineda MD ENDOSCOPY PROCEDURES Final Result from Last 3 Months or Most Recently Relevant to Health Maintenance Insurance MEDICARE COMMERCIAL GENERIC MEDICARE COMMERCIAL GENERIC MEDICARE COMMERCIAL GENERIC Advance Directives For more information, please contact: [phone] * Full Code (Latest Code Status on File) Date Activated Date Inactivated Comments 11/20/2024 7:08 AM 11/20/2024 1:41 PM * Full Code Date Activated Date Inactivated Comments 11/20/2024 7:08 AM 11/20/2024 7:08 AM Care Teams Personal Lines Sales Rep Relationship Specialty Start Date End Date Sg Tamez MD PCP - General 06/03/14
--- OUTSIDE RECORDS SUMMARY | 2025-05-06 07:38 | XMS_ITS | Clinical Summary ---
Author Organization [facility] Physician Of [facility] 1 Address [address] [place] [address] Care Team Providers Care Testing And Regulating Technician Name Role Phone Sg Tamez MD Primary Care Provider [phone] Allergies Active Allergy Reactions Criticality Noted Date [...] Atrial fibrillation Hypertension 06/03/2014 Overview (01/07/2017): HTN Surgical History Surgery Date Site/Laterality Comments INGUINAL HERNIA REPAIR Right TARSAL TUNNEL RELEASE Right Medical History Medical History Date Comments A-fib (HCC) Social History Tobacco Use Types Packs/Day Years [...] on file Legal Sex Male 3:23 AM CHAIN MAKER Gender Identity Not on file Sexual Orientation Not on file Obstetrics History Last Filed Vital Signs Vital Sign Reading Time Taken Comments Blood Pressure 129/89 11/20/2024 9:19 AM CHAIN MAKER Pulse 58 11/20/2024 9:19 AM CHAIN MAKER Temperature 36.8 C (98.3 F) 11/20/2024 9:19 AM CHAIN MAKER Respiratory Rate 16 11/20/2024 9:19 AM CHAIN MAKER Oxygen Saturation 95% 11/20/2024 9:19 AM CHAIN MAKER Inhaled Oxygen Concentration - - Weight 88 kg (194 lb 0.1 oz) 11/20/2024 7:11 AM CHAIN MAKER Height 175.3 cm (5' 9.02) 11/20/2024 7:11 AM CS T Body Mass Index 28.64 11/20/2024 7:11 AM CHAIN MAKER Plan of Treatment Health Maintenance Due Date Last Done Comments Depression Screening 1955 Fall Risk Assessment 1955 Hepatitis C Screening 1955 Prostate Cancer Screening-PSA 1955 Hepatitis B Screening 1973 Pneumococcal vaccine 65+ (1 of 1 - PCV) 2005 Zoster Vaccine (1 of 2) 2005 Well Visit 65+ 2020 Influenza Vaccine (#1) 2025 10/28/2015, 2015 DTaP/Tdap/Td Vaccine (3 - Td or Tdap) 06/08/203203/2022, 08/07/2014 Colon Cancer Screening-Colonoscopy 11/20/20342024 Procedures Procedure Name Priority Date/Time Associated Diagnosis Comments COLONOSCOPY 11/20/2024 7:21 AM CHAIN MAKER from Last 3 Months or Most Recently Relevant to Health Maintenance Results * Colonoscopy (11/20/2024 7:21 AM CHAIN MAKER) Anatomical Region Laterality Modality Other Narrative Procedure Note Elba Pineda MD - 11/20/2024 7:21 AM CST [facility] Patient Name: Judy Berrios Procedure Date: 11/20/2024 7:21 AM Date of : 1955 Admit Type: Outpatient Age: 69 Gender: Male Attending MD: Elba Pineda M.D. Room: [facility] END[facility]COPY ROOM 1 Note Status: Finalized Patient [...] retrieved. Clips (MR conditional) were placed. Clip sounding device operator: Wonga. - Five 3 to 4 mm polyps [...] under direct vision. The Pediatric Colonoscope PCF-H190L [id number] was introducedthrough the anus and advanced to [...] clips were successfully placed (MR conditional). Clip sounding device operator: Wonga. There was no bleeding at the end [...] 7:21 AM Procedure Code(s): --- Professional --- 15056, Colonoscopy, flexible; with removal of tumor(s), polyp(s), or other lesion(s) by snare technique 94638, 59, Colonoscopy, flexible; with biopsy, single or multiple Diagnosis Code(s): --- Professional --- Z12.11, Encounter for screening for malignant neoplasm of colon K64.8, Other hemorrhoids D12.2, Benign neoplasm of ascending colon D12.0, Benign neoplasm of cecum D12.5, Benign neoplasm of sigmoid colon D12.4, Benign neoplasm of descending colon D12.3, Benign neoplasm of transverse colon (hepatic flexure orsplenic flexure) CPT copyright 2020 [employer]. All rights reserved. The codes documented in this report are preliminary and upon hydroelectric plant technician reviewmay be revised to meet current compliance requirements. Recognized by the [employer] for promoting quality in endoscopy Elba Pineda MD ENDOSCOPY PROCEDURES Final Result from Last 3 Months or Most Recently Relevant to Health Maintenance Insurance MEDICARE COMMERCIAL [facility] MEDICARE COMMERCIAL GENERIC MEDICARE COMMERCIAL GENERIC Advance Directives For more information, please contact: [phone] * Full Code (Latest Code Status on File) Date Activated Date Inactivated Comments 11/20/2024 7:08 AM 11/20/2024 1:41 PM * Full Code Date Activated Date Inactivated Comments 11/20/2024 7:08 AM 11/20/2024 7:08 AM Care Teams Testing And Regulating Technician Relationship Specialty Start Date End Date Sg Tamez MD PCP - General 06/03/14
--- OUTSIDE RECORDS SUMMARY | 2025-05-06 07:38 | XMS_ITS | Clinical Summary ---
Author Organization [facility] [employer] Address [address] [place] [address] Care Team Providers Care Thermal Spray Operator Name Role Phone Sg Tamez MD Primary Care Provider [phone] Source Comments [facility] [employer],non-owned Affiliates and Associated Physician Practices is amultiple site organization consisting of ambulatory clinics and hospital sitesin [place], [place], [place] and [place]. This disclosure is being madepursuant to the Care Everywhere program and may not contain all information available regarding this patient. Last updated 18.[facility] [employer] Allergies Active Allergy Reactions Criticality Noted Date Comments Lisinopril Cough Low 01/17/2020 Medications * Be aware that medications may not be up to date on this document. Alwaysverify current medications with the patient. albuterol HFA (Proventil; Ventolin; Proair) 108 (90 Base) MCG/ACT inhaler Inhale 2 puffs every 4 hours by inhalation route. Active amiodarone (Cordarone) 200 MG tablet Take 1 (one) tablet by mouth once daily 4 Active atorvastatin (Lipitor) 10 MG tablet Take 1 (one) tablet by mouth once daily Active diclofenac potassium (Cataflam) 50 MG tablet Active levothyroxine (Synthroid) 50 MCG tablet Take 1 (one) tablet by mouth once daily Active montelukast (Singulair) 10 MG tablet Active olmesartan (Benicar) 40 MG tablet Take 1 (one) tablet by mouth once daily 4 Active warfarin (Coumadin) 5 MG tablet TAKE ONE TABLET BY MOUTH EVERY DAY EXCEPT FOR ON TUESDAY AND TUESDAY TAKING 7.5 MG Active Social History Tobacco Use Types Packs/Day Years Used Date Smoking Tobacco: Never Smokeless Tobacco: Never Tobacco Cessation:Counseling Given: Not Answered Alcohol Use Standard Drinks/Week Comments Yes 0 (1 standard drink = 0.6 oz pur e alcohol) occ Sex and Gender Information Value Date Recorded Sex Assigned at Not on file Legal Sex Male 9:06 PM CDT Gender Identity Not on file Sexual Orientation Not on file Last Filed Vital Signs Vital Sign Reading Time Taken Comments Blood Pressure 129/86 06/28/2024 12:53 AM CDT Pulse 58 06/28/2024 12:53 AM CDT Temperature 36.2 C (97.2 F) 06/28/2024 12:53 AM CDT Respiratory Rate 17 06/28/2024 12:53 AM CDT Oxygen Saturation 94% 06/28/2024 7:12 AM CDT Inhaled Oxygen Concentration - - Weight 86.2 kg (190 lb) 06/27/2024 11:47 PM CDT Height 172.7 cm (5' 8) 06/27/2024 11:47 PM CDT Body Mass Index 28.89 06/27/2024 11:47 PM CDT Plan of Treatment Health Maintenance Due Date Last Done Comments COLOGUARD (AGES 45-75) - COL ON CA SCREENING 1955 COLON MONITORING 1955 COLONOSCOPY - COLON CA SCREENING 1955 CT COLONOGRAPHY - COLON CA SCREENING 1955 Colorectal Cancer Screening 1955 FIT - COLON CA SCREENING 1955 FLEX SIG - COLON CA SCREENING 1955 MEDICARE AWV 12 MONTHS 1955 HEPATITIS C SCREENING 06/29/1973 DTAP/TDAP/TD VACCINES (1 - Tdap) 1974 PNEUMOCOCCAL VACCINE 50+ (1 of 1 - PCV) 2005 ZOSTER VACCINE (1 of 2) 2005 COVID-19 VACCINE (1 - 2023-2 5 season) 2024 DEPRESSION SCREENING 10/03/2024 INFLUENZA VACCINE (#1) 2025 10/28/2015 SCREENING FOR DIABETES 06/28/2027 06/28/2024 Respiratory Syncytial Virus (RSV) Vaccine Pt: or over 60 yrs (1 - 1-dose 75+ series) 2030 HEPATITIS B VACCINE Aged Out No longe r eligible based on patient's age to complete this topic HIB VACCINE Aged Out No longer eligi ble based on patient's age to complete this topic HPV VACCINE Aged Out No longer eligi ble based on patient's age to complete this topic MENINGOCOCCAL (Group B) VACC INE SHARED DECISION-MAKING Aged Out No longer eligibl e based on patient's age to complete this topic MENINGOCOCCAL GROUPS A/C/Y/W VACCINE Aged Out No longer eligible b ased on patient's age to complete this topic Procedures Procedure Name Priority Date/Time Associated Diagnosis Comments COMPREHENSIVE METABOLIC PANEL STAT 06/28/2024 8:43 AM CDT from Last 3 Months or Most Recently Relevant to Health Maintenance Results * (ABNORMAL) COMPREHENSIVE METABOLIC PANEL (06/28/2024 8:43 AM CDT) BUN 12 7 - 26 mg/dL 06/28/2024 9:27 AM [facility] Creatinine 0.82 0.71 - 1.16 mg/dL 06/28/2024 9:27 AM [facility] Sodium 141 136 - 145 mmol/L 06/28/2024 9:27 AM [facility] Potassium 4.4 3.5 - 4.5 mmol/L 06/28/2024 9:27 AM [facility] Chloride 110(H) 98 - 107 mmol/L 06/28/2024 9:27 AM [facility] CO2 26 22 - 29 mmol/L 06/28/2024 9:27 AM [facility] Glucose 97 70 - 115 mg/dL 06/28/2024 9:27 AM [facility] Calcium 8.7 8.4 - 10.2 mg/dL 06/28/2024 9:27 AM [facility] Protein Total 6.4 6.0 - 8.3 g/dL 06/28/2024 9:27 AM [facility] Albumin 3.6 3.4 - 5.0 g/dL 06/28/2024 9:27 AM [facility] Bilirubin Total 0.4 0.2 - 1.2 mg/dL 06/28/2024 9:27 AM [facility] Alkaline Phosphatase 64 40 - 150 U/L 06/28/2024 9:27 AM [facility] ALT 23 5 - 55 U/L 06/28/2024 9:27 AM [facility] AST 22 5 - 34 U/L 06/28/2024 9:27 AM [facility] Anion Gap 5(L) 6 - 16 06/28/2024 9:27 AM [facility] BUN/Creatinine Ratio 15 7 - 23 06/28/2024 9:27 AM [facility] Osmolality Calculated 292 275 - 295 mOsm/kg 06/28/2024 9:27 AM [facility] Albumin/Globulin Ratio 1.3 1.1 - 2.3 06/28/2024 9:27 AM [facility] eGFR by CKD-EPI >90 >=90 mL/min/1.7 3 m2 06/28/2024 9:27 AM [facility] Blood BLOOD SPECIMEN / Unknown Venipuncture / Unknown 06/28/2024 8:43 AM CDT 06/28/2024 8:47 AM T Amy Milligan MD LAB - CHEMISTRY ORDERABLES Fin al Result [facility] [address] [place] [address], [facility] [phone] from Last 3 Months or Most Recently Relevant to Health Maintenance Insurance MEDICARE MEDICARE SUPPLEMENT [employer] Care Teams Thermal Spray Operator Relationship Specialty Start Date End Date Sg Tamez MD [address] [place] [address] PCP - General Internal Medicine 06/28/24
--- OUTSIDE RECORDS SUMMARY | 2025-05-06 07:38 | XMS_ITS | Encounter Summary ---
Author Organization [facility] Address [address] [place] [address] Care Team Providers Care Contract Negotiation Specialist Name Role Phone Sg Tamez MD Primary Care Provider [phone] Encounter Details Date Type Department Care Team (Late st Contact Info) Description 06/28/2024 Ophth Exam [facility] - Ophthalmology [address] [place] [address] Sg Quintana MD [address] [facility] [place] [address] Social History Tobacco Use Types Packs/Day Years Used Date Smoking Tobacco: Never Smokeless Tobacco: Never Alcohol Use Standard Drinks/Week Comments Yes 0 (1 standard drink = 0.6 oz pur e alcohol) occ Sex and Gender Information Value Date Recorded Sex Assigned at Not on file Legal Sex Male 9:06 PM CDT Gender Identity Not on file Sexual Orientation Not on file documented as of this encounter Plan of Treatment Not on file documented as of this encounter Visit Diagnoses Not on filedocumented in this encounter Care Teams Contract Negotiation Specialist Relationship Specialty Start Date End Date Sg Tamez MD [address] [place] [address] PCP - General Internal Medicine 06/28/24 documented as of this encounter
--- NOTE | 2025-05-27 13:29 | WPDHOMESLEEP ---
Sleep Study - Home Unattended Date of Study: 05/06/25 Ordering Provider: Sg Tamez, Interpreting Provider: Cleo Doran, DO Home Sleep Study Type: Watch PAT Height: 1.73 m Weight: 86.183 kg Body Mass Index: 28.8 Neck Circumference (inches): 15 Elizabeth: 14 Reason for Sleep Study Daytime hypersomnia Sleep History The patient is a 69-year-old male who had a sleep study ordered by his primary care physician for the evaluation of sleep apnea. The patient denies awakening from sleep short of breath. He occasionally awakens at night with heartburn, belching, or cough. He frequently snores, and it is often loud enough that others complain. He occasionally has trouble sleeping when he has a cold. He denies waking up gasping for air throughout the night. He frequently has breathing problems at night observed by himself or others. He rarely sweats excessively at night. He denies having heart palpitations or irregular heartbeats during the night. He frequently falls asleep during the day and while driving. He denies sleep paralysis, cataplexy, and hypnagogic/hypnopompic hallucinations. He denies having trouble at school or work due to sleepiness. He denies feeling afraid of going to sleep. He denies having nightmares. He rarely remembers his dreams. He rarely has thoughts racing through his mind. He denies feeling sad or depressed. He rarely has anxiety. He denies having muscular tension. He occasionally notices parts of his body jerk. He denies kicking during the night. He denies having crawling and aching feelings in his legs and denies having leg pain during the night. He denies grinding his teeth during sleep and denies awakening with morning jaw pain. He is frequently bothered by pain during the day and occasionally awakened by pain during the night. He occasionally wakes up feeling stiff in the morning. He denies waking up with sore or aching muscles. He denies waking up with pain in the neck, spine, and other joints. He goes to bed at 7:30 PM every night. He is able to fall asleep relatively quickly. He wakes up 3 to 5 times throughout the night to urinate, and it can take him 1 to 2 hours to fall back asleep. He wakes up at 3 AM every morning. He will stay in bed for 30 minutes after waking up in the morning. He currently lives with his . He denies consuming any caffeinated beverages within 2 hours of bedtime. He denies engaging in physical exercise before bedtime. 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 Gender identity (if verbalized by the patient): Male Medications Home Medications ?Medication ?Instructions ?Recorded ?Confirmed ?Type atorvastatin 10 mg tablet 10 mg PO DAILY 12/06/19 05/16/25 History warfarin 5 mg tablet 5 mg PO DAILY 12/06/19 05/16/25 History levothyroxine 50 mcg tablet 50 mcg PO DAILY 03/22/20 05/16/25 History albuterol sulfate 90 mcg/actuation 2 puff inhalation QID PRN 05/13/25 05/16/25 Rx aerosol inhaler shortness of breath or wheezing #8.5 grams amoxicillin 500 mg tablet 1,000 mg (2 x 500 mg) PO Q8H #42 05/13/25 05/16/25 Rx tabs doxycycline hyclate 100 mg capsule 100 mg PO Q24H 05/13/25 05/16/25 History prednisone 20 mg tablet 40 mg (2 x 20 mg) PO BID #10 tabs 05/13/25 05/16/25 Rx Sleep Procedure The sleep study was completed using Circass[employer]T a technically adequate device with seven channels: peripheral arterial tone, actigraphy, body position, snore, respiratory movement, pulse oximetry, sleep staging, and heart rate. Prior to using the device, the patient received verbal and written instructions for its application and was provided with the [employer] desk phone number for additional telephonic instruction with 24-hour availability of qualified personnel to answer questions. The study was scored using CMS guidelines. Sleep Architecture The total recording time is 6 hrs, 48 min. The total sleep time is 5 hrs, 9 min. Sleep latency is 5 minutes. REM latency is 49 minutes. The patient had 15 episodes of waking. Sleep architecture shows 5.5% deep sleep, 90.8% light sleep, and (as % Total Sleep Time) showed NREM (Light 90.8%; Deep 5.5%), and a 3.7% stage REM. The patient spent 58.6% of total sleep time in the supine position. Sleep efficiency was 75.74. Respiratory Analysis The overall AHI (pAHI 4%:) is 33.3. The overall AHI (pAHI 3%:) is 38.9. The central AHI is 19.3. The AHI was N/A in NREM and N/A in REM sleep. The AHI was 49.4 in Supine and 23.9 in Non-supine sleep. Percent of Bill Donaldson respirations is 25.1. Oximetry Data The oxygen desaturation index (JUNIE 4%:) is 26.3. The mean saturation is 95%, and the lowest saturation is 80%. Time spent with saturation < 88% is 3.2 minutes. Snoring Profile Snoring average intensity is 44 dB. The patient snored above 45 decibels for 87.2 minutes, 28.2% of sleep time. Cardiac Profile The average pulse rate is 49 beats per minutes. The lowest pulse rate is 34 bpm. The highest pulse rate reported is 107 bpm. Atrial fibrillation was not detected. Premature beats occur 0.3 per minute. Assessment and Plan Assessment and Plan (1) Mixed sleep apnea: Code(s): G47.39 - Other sleep apnea Status: Acute Assessment and Plan: The patient had an overall AHI of 33.3 with desaturation down to 80%. This is consistent with severe sleep apnea. The patient had a central apnea index of 19.3, which is elevated (normal <5). The patient is not a candidate for AutoPAP due to the elevated central apnea index and Ibll Donaldson respirations. I recommend that the patient have a CPAP Titration study with the use of a hypnotic to ensure we obtain enough data. (2) Bill-Donaldson respiration: Code(s): R06.3 - Periodic breathing Status: Acute Assessment and Plan: The patient needs an echocardiogram to rule out cardiogenic causes for an elevated central apnea index. Data The data obtained during this sleep study is adequate for interpretation. Certification This sleep study has been reviewed by a board certified sleep medicine physician.
[2025-05-28 12:58] VITALS: BMI 28.8
== END 2025-05-07 11:17 | disposition home or self-care (01) ==
LOC: ANHCSM 07:36
PROVIDERS: PCP Internal Medicine; Visit Provider Internal Medicine
DX: G47.39 Other sleep apnea (principal); I48.91 Unspecified atrial fibrillation
CPT/HCPCS: 95800

== ENCOUNTER 2025-05-13 08:04 | Emergency (ER) | payer MEDICARE, SELFPAY ==
--- NOTE | ~2025-05-13 | XR_ITS ---
EXAMINATION: XR chest 2V 05/13/2025 08:51 INDICATION: Upper respiratory infection PROCEDURE: 2 view chest COMPARISON: Comparison to multiple prior studies sequentially, with oldest reviewed study dated 12/20. FINDINGS: No focal pneumonia. There is lingular atelectasis/scarring unchanged. The cardiomediastinal silhouette is within normal limits. There are no pleural effusions. There is no pneumothorax suspe cted. IMPRESSION: 1: NO ACUTE CARDIOPULMONARY DISEASE. Reviewed, dictated and finalized at location A.
[2025-05-13 08:06] VITALS: BP 150/99; PULSE 56; RESP 18; TEMP 36.7; O2SAT 97
--- OUTSIDE RECORDS SUMMARY | 2025-05-13 08:12 | XMS_ITS | Clinical Summary ---
Author Organization [facility] Physician Of [facility] 1 Address [address] [place] [address] Care Team Providers Care Emergency Medical Technician Name Role Phone Sg Tamez MD Primary Care Provider [phone] Allergies Active Allergy Reactions Criticality Noted Date [...] on file Legal Sex Male 3:23 AM INVESTIGATIONS DIRECTOR Gender Identity Not on file Sexual Orientation Not on file Obstetrics History Last Filed Vital Signs Vital Sign Reading Time Taken Comments Blood Pressure 129/89 11/20/2024 9:19 AM INVESTIGATIONS DIRECTOR Pulse 58 11/20/2024 9:19 AM INVESTIGATIONS DIRECTOR Temperature 36.8 C (98.3 F) 11/20/2024 9:19 AM INVESTIGATIONS DIRECTOR Respiratory Rate 16 11/20/2024 9:19 AM INVESTIGATIONS DIRECTOR Oxygen Saturation 95% 11/20/2024 9:19 AM INVESTIGATIONS DIRECTOR Inhaled Oxygen Concentration - - Weight 88 kg (194 lb 0.1 oz) 11/20/2024 7:11 AM INVESTIGATIONS DIRECTOR Height 175.3 cm (5' 9.02) 11/20/2024 7:11 AM CS T Body Mass Index 28.64 11/20/2024 7:11 AM INVESTIGATIONS DIRECTOR Plan of Treatment Health Maintenance Due Date [...] Associated Diagnosis Comments COLONOSCOPY 11/20/2024 7:21 AM INVESTIGATIONS DIRECTOR from Last 3 Months or Most Recently Relevant to Health Maintenance Results * Colonoscopy (11/20/2024 7:21 AM INVESTIGATIONS DIRECTOR) Anatomical Region Laterality Modality Other Narrative Procedure Note Elba Pineda MD - 11/20/2024 7:21 AM CST [facility] Patient Name: Judy Berrios Procedure Date: 11/20/2024 7:21 AM Date of : 1955 Admit Type: Outpatient Age: 69 Gender: Male Attending MD: Elba Pineda M.D. Room: [facility] ENDOSCOPY ROOM 1 Note Status: Finalized Patient [...] retrieved. Clips (MR conditional) were placed. Clip manager drug: Transmension. - Five 3 to 4 mm polyps [...] under direct vision. The Pediatric Colonoscope PCF-H190L [id number] was introducedthrough the anus and advanced to [...] clips were successfully placed (MR conditional). Clip manager drug: Transmension. There was no bleeding at the end [...] 7:21 AM Procedure Code(s): --- Professional --- 02007, Colonoscopy, flexible; with removal of tumor(s), polyp(s), or other lesion(s) by snare technique 24158, 59, Colonoscopy, flexible; with biopsy, single or multiple Diagnosis Code(s): --- Professional --- Z12.11, Encounter for screening for malignant neoplasm of colon K64.8, Other hemorrhoids D12.2, Benign neoplasm of ascending colon D12.0, Benign neoplasm of cecum D12.5, Benign neoplasm of sigmoid colon D12.4, Benign neoplasm of descending colon D12.3, Benign neoplasm of transverse colon (hepatic flexure orsplenic flexure) CPT copyright 2020 [employer]. All rights reserved. The codes documented in this report are preliminary and upon insurance coder reviewmay be revised to meet current compliance requirements. Recognized by the [employer] for promoting quality in endoscopy Ebla Pineda MD ENDOSCOPY PROCEDURES Final Result from Last 3 Months or Most Recently Relevant to Health Maintenance Insurance MEDICARE COMMERCIAL [facility] MEDICARE COMMERCIAL GENERIC MEDICARE COMMERCIAL GENERIC Advance Directives For more information, please contact: [phone] * Full Code (Latest Code Status on File) Date Activated Date Inactivated Comments 11/20/2024 7:08 AM 11/20/2024 1:41 PM * Full Code Date Activated Date Inactivated Comments 11/20/2024 7:08 AM 11/20/2024 7:08 AM Care Teams Emergency Medical Technician Relationship Specialty Start Date End Date Sg Tamez MD PCP - General 06/03/14
--- OUTSIDE RECORDS SUMMARY | 2025-05-13 08:12 | XMS_ITS | Clinical Summary ---
Author Organization [facility] Address [address] [place] [address] Care Team Providers Care Water Treatment Technician Name Role Phone Sg Tamez MD Primary Care Provider [phone] Source Comments [facility],non-owned Affiliates and Associated Physician Practices is amultiple site organization consisting of ambulatory clinics and hospital sitesin [place], [place], [place] and [place]. This disclosure is being madepursuant to the Care Everywhere program and may not contain all information available regarding this patient. Last updated 18.[facility] Allergies Active Allergy Reactions Criticality Noted Date [...] 7 - 26 mg/dL 06/28/2024 9:27 AM [facility] Creatinine 0.82 0.71 - 1.16 mg/dL 06/28/2024 9:27 AM [facility] Sodium 141 136 - 145 mmol/L 06/28/2024 9:27 AM [facility] Potassium 4.4 3.5 - 4.5 mmol/L 06/28/2024 9:27 AM [facility] Chloride 110(H) 98 - 107 mmol/L 06/28/2024 9:27 AM [facility] CO2 26 22 - 29 mmol/L 06/28/2024 9:27 AM [facility] Glucose 97 70 - 115 mg/dL 06/28/2024 9:27 AM [facility] Calcium 8.7 8.4 - 10.2 mg/dL 06/28/2024 9:27 AM [facility] Protein Total 6.4 6.0 - 8.3 g/dL 06/28/2024 9:27 AM [facility] Albumin 3.6 3.4 - 5.0 g/dL 06/28/2024 9:27 AM [facility] Bilirubin Total 0.4 0.2 - 1.2 mg/dL 06/28/2024 9:27 AM [facility] Alkaline Phosphatase 64 40 - 150 U/L 06/28/2024 9:27 AM [facility] ALT 23 5 - 55 U/L 06/28/2024 9:27 AM [facility] AST 22 5 - 34 U/L 06/28/2024 9:27 AM [facility] Anion Gap 5(L) 6 - 16 06/28/2024 9:27 AM [facility] BUN/Creatinine Ratio 15 7 - 23 06/28/2024 9:27 AM [facility] Osmolality Calculated 292 275 - 295 mOsm/kg 06/28/2024 9:27 AM [facility] Albumin/Globulin Ratio 1.3 1.1 - 2.3 06/28/2024 9:27 AM [facility] eGFR by CKD-EPI >90 >=90 mL/min/1.7 3 m2 06/28/2024 9:27 AM [facility] Blood BLOOD SPECIMEN / Unknown Venipuncture / Unknown 06/28/2024 8:43 AM CDT 06/28/2024 8:47 AM T Amy Milligan MD LAB - CHEMISTRY ORDERABLES Fin al Result [facility] [address] [place] [address], [facility] [place] [phone] from Last 3 Months or Most Recently Relevant to Health Maintenance Insurance MEDICARE MEDICARE SUPPLEMENT PAYOR GENERIC Care Teams Water Treatment Technician Relationship Specialty Start Date End Date Sg Tamez MD [address] [place] [address] PCP - General Internal Medicine 06/28/24
--- OUTSIDE RECORDS SUMMARY | 2025-05-13 08:12 | XMS_ITS | Encounter Summary ---
Author Organization [facility] Address [address] [place] [address] Care Team Providers Care Bucket Pusher Name Role Phone Sg Tamez MD Primary Care Provider [phone] Encounter Details Date Type Department Care Team (Late st Contact Info) Description 06/28/2024 Ophth Exam [facility] - Ophthalmology [address] [place] [address] Sg Quintana MD [address] [facility] [place] [address] Social History Tobacco Use Types Packs/Day Years [...] on filedocumented in this encounter Care Teams Bucket Pusher Relationship Specialty Start Date End Date Sg Tamez MD [address] [place] [phone] PCP - General Internal Medicine 06/28/24 documented as of this encounter
--- NOTE | 2025-05-13 08:16 | ED.URI ---
HPI - URI/Sore Throat General Chief Complaint: Upper Respiratory Infection Stated Complaint: difficulty breathing Time Seen by Provider: 05/13/25 08:16 Source: patient Mode of arrival: ambulatory History of Present Illness HPI Narrative: 69 years old white male drove himself to the emergency room complaining of upper respiratory symptoms started 7 days ago got worse the following days. Patient report nasal congestion, postnasal discharge, sore throat 7 days ago, 3 days later started having productive cough of colored sputum with trouble breathing on exertion. History of atrial fibrillation on Coumadin, hyperlipidemia, hypothyroidism. Patient denied smoking or drinking or using drugs. Patient denies any fever, chills, chest pain, back pain, dizziness, lightheadedness or headache. Related Data Home Medications ?Medication ?Instructions ?Recorded ?Confirmed ?Last Taken ?Type amiodarone 200 mg tablet 200 mg PO DAILY 12/06/19 06/27/24 06/27/24 History atorvastatin 10 mg tablet 10 mg PO DAILY 12/06/19 06/27/24 06/27/24 History olmesartan 40 mg tablet 40 mg PO DAILY 12/06/19 06/27/24 06/27/24 History warfarin 5 mg tablet 5 mg PO DAILY 12/06/19 06/27/24 06/27/24 History levothyroxine 50 mcg tablet 50 mcg PO DAILY 03/22/20 06/27/24 06/27/24 History doxycycline hyclate 100 mg capsule 100 mg PO Q24H 05/13/25 Unknown History Allergies Allergy/AdvReac Type Severity Reaction Status Date / Time No Known Allergies Allergy Unknown Verified 05/13/25 08:21 Review of Systems Review of Systems: All systems reviewed & are unremarkable except as noted in HPI and below PMFSH Past Medical History Medical History Hypothyroidism Hyperlipidemia Hypertension Atrial fibrillation Surgical History Surgical History Hx of inguinal hernia surgery History of ankle surgery Social History Social History Smoking status: Never smoker Alcohol intake: current Alcohol use details: Occasional Substance use: never 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 Gender identity (if verbalized by the patient): Male Exam Narrative: General appearance: Well-developed, well-nourished intermittent spells of productive cough Skin: Normal color Head: Normocephalic, nontraumatic Eyes: Clear conjunctiva ENT: Oropharynx normal, ears normal, nose normal Neck: Supple, nontender Chest and respiratory: Airway patent, Scattered coarse rhonchi and wheezing bilaterally Heart: Regular rate/rhythm Abdomen: Soft, nontender, no organomegaly, quiet bowel sounds Vascular: Normal peripheral pulses, normal capillary refill. Musculoskeletal: Normal range of motion, nontender back Neurologic: Alert and oriented ?3, RF MICROWAVE ENGINEER is normal as tested, no gross motor deficit Course Vital Signs Vital signs: Vital Signs Temperature 36.7 C 05/13/25 08:06 Pulse Rate 56 L 05/13/25 08:06 Respiratory Rate 18 05/13/25 08:06 Blood Pressure 150/99 H 05/13/25 08:06 Pulse Oximetry 97 05/13/25 08:06 Oxygen Delivery Room Air 05/13/25 08:06 Temperature 36.7 C 05/13/25 08:06 Pulse Rate 75 05/13/25 08:39 Respiratory Rate 16 05/13/25 08:39 Blood Pressure 150/99 H 05/13/25 08:06 Pulse Oximetry 100 05/13/25 08:39 Oxygen Delivery Room Air 05/13/25 08:19 MDM - URI/Sore Throat MDM Narrative Medical decision making narrative: patient presents with productive cough Vital signs showing blood pressure 150/99, heart rate 56 otherwise within normal limit Physical examination showing scattered rhonchi and wheezing bilaterally with intermittent spells of productive cough Differential diagnosis include pneumonia, bronchitis, bronchospasm, upper respiratory viral infection with possible secondary bacterial infection Chest x-ray showed no acute abnormalities Patient tested negative for COVID flu and RSV. In the ED patient received the albuterol nebulizer treatment with remarkable improvement. Diagnosis acute bronchitis with wheezing Discharged on amoxicillin, albuterol inhaler and prednisone. the pt was discharged to home.the pt,s condition upon discharge was fair,education was provided to the pt in reference to the final impression,discharge study results,treatment,prognosis and need for follow up . Lab Data Labs: Lab Results 05/13/25 Range/Units 08:21 Influenza A (RT-PCR) Negative (Negative) Influenza B (RT-PCR) Negative (Negative) RSV (RT-PCR) Negative (Negative) SARS-CoV-2 RNA (RT-PCR) Negative (Negative) Imaging Data Radiologist's impression: Impressions Chest X-Ray 05/13/25 09:06 IMPRESSION: 1: NO ACUTE CARDIOPULMONARY DISEASE. Discharge Plan Discharge Clinical Impression: AB (asthmatic bronchitis) Patient Disposition: Home Condition: Stable Instructions: Antibiotic Form, Acute Bronchitis (ED), Bronchospasm (ED) Additional Instructions: Return if symptoms are worsening , call your family physician for appointment, take Tylenol as as needed for aches and pain, continue home medications. Patient Language: South African Prescriptions: New amoxicillin 500 mg tablet 1,000 mg PO Q8H Qty: 42 0RF albuterol sulfate 90 mcg/actuation HFA aerosol inhaler 2 puff inhalation QID PRN (Reason: shortness of breath or wheezing) Qty: 8.5 0RF prednisone 20 mg tablet 40 mg PO BID Qty: 10 0RF No Action atorvastatin 10 mg tablet 10 mg PO DAILY amiodarone 200 mg tablet 200 mg PO DAILY warfarin 5 mg tablet 5 mg PO DAILY olmesartan 40 mg tablet 40 mg PO DAILY levothyroxine 50 mcg tablet 50 mcg PO DAILY doxycycline hyclate 100 mg capsule 100 mg PO Q24H Follow-up/Referrals: UNKNOWN,DOCTOR [Non-Staff] - Stand Alone Forms: Work/School Release IP
[2025-05-13 08:19] VITALS: O2SAT 97
--- NOTE | 2025-05-13 08:21 | PC.NURSE ---
covid culture sent to lab
[2025-05-13] MEDS: ALBUTEROL SULFATE NEB 2.5 MG/3 ML INH INHALATION (08:27)
[2025-05-13 08:28] VITALS: PULSE 62; RESP 16; O2SAT 97
[2025-05-13 08:39] VITALS: PULSE 75; RESP 16; O2SAT 100
--- OUTSIDE RECORDS SUMMARY | 2025-05-13 08:44 | XMS_ITS | Clinical Summary ---
Author Organization [facility] Address [address] [place] [address] Care Team Providers Care Embossing Machine Operator Name Role Phone Sg Tamez MD Primary Care Provider [phone] Source Comments [facility],non-owned Affiliates and Associated Physician Practices is amultiple site organization consisting of ambulatory clinics and hospital sitesin [place], [place], [place] and [place]. This disclosure is being madepursuant to the Care Everywhere program and may not contain all information available regarding this patient. Last updated 18.[facility] Allergies Active Allergy Reactions Criticality Noted Date [...] 7 - 26 mg/dL 06/28/2024 9:27 AM [facility] Creatinine 0.82 0.71 - 1.16 mg/dL 06/28/2024 9:27 AM [facility] Sodium 141 136 - 145 mmol/L 06/28/2024 9:27 AM [facility] Potassium 4.4 3.5 - 4.5 mmol/L 06/28/2024 9:27 AM [facility] Chloride 110(H) 98 - 107 mmol/L 06/28/2024 9:27 AM [facility] CO2 26 22 - 29 mmol/L 06/28/2024 9:27 AM [facility] Glucose 97 70 - 115 mg/dL 06/28/2024 9:27 AM [facility] Calcium 8.7 8.4 - 10.2 mg/dL 06/28/2024 9:27 AM [facility] Protein Total 6.4 6.0 - 8.3 g/dL 06/28/2024 9:27 AM [facility] Albumin 3.6 3.4 - 5.0 g/dL 06/28/2024 9:27 AM [facility] Bilirubin Total 0.4 0.2 - 1.2 mg/dL 06/28/2024 9:27 AM [facility] Alkaline Phosphatase 64 40 - 150 U/L 06/28/2024 9:27 AM [facility] ALT 23 5 - 55 U/L 06/28/2024 9:27 AM [facility] AST 22 5 - 34 U/L 06/28/2024 9:27 AM [facility] Anion Gap 5(L) 6 - 16 06/28/2024 9:27 AM [facility] BUN/Creatinine Ratio 15 7 - 23 06/28/2024 9:27 AM [facility] Osmolality Calculated 292 275 - 295 mOsm/kg 06/28/2024 9:27 AM [facility] Albumin/Globulin Ratio 1.3 1.1 - 2.3 06/28/2024 9:27 AM [facility] eGFR by CKD-EPI >90 >=90 mL/min/1.7 3 m2 06/28/2024 9:27 AM [facility] Blood BLOOD SPECIMEN / Unknown Venipuncture / Unknown 06/28/2024 8:43 AM CDT 06/28/2024 8:47 AM T Amy Milligan MD LAB - CHEMISTRY ORDERABLES Fin al Result [facility] [address] [place] [address], [facility] [place] [phone] from Last 3 Months or Most Recently Relevant to Health Maintenance Insurance MEDICARE MEDICARE SUPPLEMENT PAYOR GENERIC Care Teams Embossing Machine Operator Relationship Specialty Start Date End Date Sg Tamez MD [address] [place] [address] PCP - General Internal Medicine 06/28/24
--- OUTSIDE RECORDS SUMMARY | 2025-05-13 08:44 | XMS_ITS | Encounter Summary ---
Author Organization [facility] Address [address] [place] [address] Care Team Providers Care Hide Sorter Name Role Phone Sg Tamez MD Primary Care Provider [phone] Encounter Details Date Type Department Care Team (Late st Contact Info) Description 06/28/2024 Ophth Exam [facility] - Ophthalmology [address] [place] [address] Sg Quintana MD [address] [facility] [place] [address] Social History Tobacco Use Types Packs/Day Years [...] on filedocumented in this encounter Care Teams Hide Sorter Relationship Specialty Start Date End Date Sg Tamez MD [address] [place] [phone] PCP - General Internal Medicine 06/28/24 documented as of this encounter
--- OUTSIDE RECORDS SUMMARY | 2025-05-13 08:44 | XMS_ITS | Clinical Summary ---
Author Organization [facility] Address [address] [place] [address] Care Team Providers Care Chocolate Refining Roller Name Role Phone Sg Tamez MD Primary Care Provider [phone] Allergies Active Allergy Reactions Criticality Noted Date [...] on file Legal Sex Male 3:23 AM STRATE[employer] LEAD Gender Identity Not on file Sexual Orientation Not on file Obstetrics History Last Filed Vital Signs Vital Sign Reading Time Taken Comments Blood Pressure 129/89 11/20/2024 9:19 AM [facility] [employer] [facility] Pulse 58 11/20/2024 9:19 AM [employer] Temperature 36.8 C (98.3 F) 11/20/2024 9:19 AM [facility] Respiratory Rate 16 11/20/2024 9:19 AM [facility] Oxygen Saturation 95% 11/20/2024 9:19 AM [employer] Inhaled Oxygen Concentration - - Weight 88 kg (194 lb 0.1 oz) 11/20/2024 7:11 AM STR[employer] INSIGHTS LEAD Height 175.3 cm (5' 9.02) 11/20/2024 7:11 AM CS T Body Mass Index 28.64 11/20/2024 7:11 AM STRATEG[employer] INS[employer]S LEAD Plan of Treatment Health Maintenance Due Date [...] Associated Diagnosis Comments COLONOSCOPY 11/20/2024 7:21 AM STR[employer]S LEAD from Last 3 Months or Most Recently Relevant to Health Maintenance Results * Colonoscopy (11/20/2024 7:21 AM STRATE[employer] INS[employer]S LEAD) Anatomical Region Laterality Modality Other Narrative Procedure Note Elba Pineda MD - 11/20/2024 7:21 AM CST [facility] Patient Name: Judy Berrios Procedure Date: 11/20/2024 7:21 AM Date of : 1955 Admit Type: Outpatient Age: 69 Gender: Male Attending MD: Elba Pineda M.D. Room: [facility] RO[facility] 1 Note Status: Finalized Patient [...] retrieved. Clips (MR conditional) were placed. Clip trimmer helper: Doist. - Five 3 to 4 mm polyps [...] under direct vision. The Pediatric Colonoscope PCF-[id number] was introducedthrough the anus and advanced to [...] clips were successfully placed (MR conditional). Clip trimmer helper: Doist. There was no bleeding at the end [...] 7:21 AM Procedure Code(s): --- Professional --- 89699, Colonoscopy, flexible; with removal of tumor(s), polyp(s), or other lesion(s) by snare technique 21314, 59, Colonoscopy, flexible; with biopsy, single or multiple Diagnosis Code(s): --- Professional --- Z12.11, Encounter for screening for malignant neoplasm of colon K64.8, Other hemorrhoids D12.2, Benign neoplasm of ascending colon D12.0, Benign neoplasm of cecum D12.5, Benign neoplasm of sigmoid colon D12.4, Benign neoplasm of descending colon D12.3, Benign neoplasm of transverse colon (hepatic flexure orsplenic flexure) CPT copyright 2020 [employer]. All rights reserved. The codes documented in this report are preliminary and upon professional fee coder reviewmay be revised to meet current compliance requirements. Recognized by the [employer] for promoting quality in endoscopy Elba Pineda MD ENDOSCOPY PROCEDURES Final Result from Last 3 Months or Most Recently Relevant to Health Maintenance Insurance MEDICARE [facility] MEDICARE COMMERCIAL GENERIC MEDICARE COMMERCIAL GENERIC Advance Directives For more information, please contact: [phone] * Full Code (Latest Code Status on File) Date Activated Date Inactivated Comments 11/20/2024 7:08 AM 11/20/2024 1:41 PM * Full Code Date Activated Date Inactivated Comments 11/20/2024 7:08 AM 11/20/2024 7:08 AM Care Teams Chocolate Refining Roller Relationship Specialty Start Date End Date Sg Tamez MD PCP - General 06/03/14
[2025-05-13 09:00] LABS: Influenza A QL RT-PCR Negative (Negative); Influenza B QL RT-PCR Negative (Negative); RSV RNA, RT-PCR Negative (Negative); SARS-CoV-2 RNA PCR Negative (Negative)
[2025-05-13 10:10] VITALS: BP 148/88; PULSE 70; RESP 20; TEMP 36.7; O2SAT 98
== END 2025-05-13 10:12 | disposition home or self-care (01) ==
PROVIDERS: Emergency Provider Emergency Medicine; PCP Internal Medicine
DX: J45.909 Unspecified asthma, uncomplicated (principal); E03.9 Hypothyroidism, unspecified; E78.5 Hyperlipidemia, unspecified; I48.91 Unspecified atrial fibrillation; I10 Essential (primary) hypertension; Z20.822 Contact with and (suspected) exposure to COVID-19; Z79.01 Long term (current) use of anticoagulants; Z79.899 Other long term (current) drug therapy
CPT/HCPCS: 71046; 87637; 94640; 99283

== ENCOUNTER 2025-07-30 09:57 | Outpatient (CLI) | payer MEDICARE, SELFPAY ==
--- OUTSIDE RECORDS SUMMARY | 2025-07-30 11:32 | XMS_ITS | Encounter Summary ---
Author Organization [facility] Address [address] [place] [address] Care Team Providers Care Side Door Worker Name Role Phone Sg Tamez MD Primary Care Provider [phone] Encounter Details Date Type Department Care Team (Late st Contact Info) Description 06/28/2024 Ophth Exam [facility] - Ophthalmology [address] [place] [address] Sg Quintana MD [address] [facility] [place] [address] Social History Tobacco Use Types Packs/Day Years [...] on filedocumented in this encounter Care Teams Side Door Worker Relationship Specialty Start Date End Date Sg Tamez MD [address] [place] [id number] PCP - General Internal Medicine 06/28/24 documented as of this encounter
--- OUTSIDE RECORDS SUMMARY | 2025-07-30 11:32 | XMS_ITS | Clinical Summary ---
Author Organization [facility] Address [address] [place] [address] Care Team Providers Care Fork Lift Mechanic Name Role Phone Sg Tamez MD Primary Care Provider [phone] Source Comments [facility],non-owned Affiliates and Associated Physician Practices is amultiple site organization consisting of ambulatory clinics and hospital sitesin [place], [place], [place] and [place]. This disclosure is being madepursuant to the Care Everywhere program and may not contain all information available regarding this patient. Last updated 18.[facility] Allergies Active Allergy Reactions Criticality Noted Date [...] 2005 ZOSTER VACCINE (1 of 2) 2005 DEPRESSION SCREENING 10/03/2024 COVID-19 VACCINE (1 - 2023-2 5 season) 2025 INFLUENZA VACCINE (#1) 2025 10/28/2015 SCREENING FOR [...] 3.4 - 5.0 g/dL 06/28/2024 9:27 AM [facility] Bilirubin Total 0.4 0.2 - [...] LAB - CHEMISTRY ORDERABLES Fin al Result [facility] [address] [place] [address], [facility] [phone] from Last 3 Months or Most Recently Relevant to Health Maintenance Insurance MEDICARE MEDICARE SUPPLEMENT PAYOR GENERIC Care Teams Fork Lift Mechanic Relationship Specialty Start Date End Date Sg Tamez MD [address] [place] [address] PCP - General Internal Medicine 06/28/24
--- OUTSIDE RECORDS SUMMARY | 2025-07-30 11:32 | XMS_ITS | Clinical Summary ---
Author Organization [facility] [address] Address [address] [place] [address] Care Team Providers Care Sheet Metal Supervisor Name Role Phone Sg Tamez MD Primary Care Provider [phone] Allergies Active Allergy Reactions Criticality Noted Date [...] on file Legal Sex Male 3:23 AM ADVERTISING TRAFFIC MANAGER Gender Identity Not on file Sexual Orientation Not on file Obstetrics History Last Filed Vital Signs Vital Sign Reading Time Taken Comments Blood Pressure 129/89 11/20/2024 9:19 AM ADVERTISING TRAFFIC MANAGER Pulse 58 11/20/2024 9:19 AM ADVERTISING TRAFFIC MANAGER Temperature 36.8 C (98.3 F) 11/20/2024 9:19 AM ADVERTISING TRAFFIC MANAGER Respiratory Rate 16 11/20/2024 9:19 AM ADVERTISING TRAFFIC MANAGER Oxygen Saturation 95% 11/20/2024 9:19 AM ADVERTISING TRAFFIC MANAGER Inhaled Oxygen Concentration - - Weight 88 kg (194 lb 0.1 oz) 11/20/2024 7:11 AM ADVERTISING TRAFFIC MANAGER Height 175.3 cm (5' 9.02) 11/20/2024 7:11 AM CS T Body Mass Index 28.64 11/20/2024 7:11 AM ADVERTISING TRAFFIC MANAGER Plan of Treatment Health Maintenance Due Date Last Done Comments Depression Screening 1955 Fall Risk Assessment 1955 Hepatitis C Screening 1955 Hepatitis B Screening 1973 Pneumococcal vaccine 65+ (1 of 1 - PCV) 2005 Zoster Vaccine (1 of 2) 2005 Well Visit 65+ 2020 Influenza Vaccine (#1) 2025 10/28/2015, 2015 DTaP/Tdap/Td Vaccine (3 - Td or Tdap) 06/08/203203/2022, 08/07/2014 Colon Cancer Screening-Colonoscopy 11/20/20342024 Procedures Procedure Name Priority Date/Time Associated Diagnosis Comments COLONOSCOPY 11/20/2024 7:21 AM ADVERTISING TRAFFIC MANAGER from Last 3 Months or Most Recently Relevant to Health Maintenance Results * Colonoscopy (11/20/2024 7:21 AM ADVERTISING TRAFFIC MANAGER) Anatomical Region Laterality Modality Other Narrative Procedure Note Elba Pineda MD - 11/20/2024 7:21 AM CST [facility] Patient Name: Judy Berrios Procedure Date: 11/20/2024 7:21 AM Date of : 1955 Admit Type: Outpatient Age: 69 Gender: Male Attending MD: Elba Pineda M.D. Room: [facility] ENDOSCOPY ROOM 1 Note Status: Finalized Patient [...] retrieved. Clips (MR conditional) were placed. Clip economics analyst: [employer]. - Five 3 to 4 mm polyps [...] under direct vision. The Pediatric Colonoscope PCF-H190L [id number] was introducedthrough the anus and advanced to [...] clips were successfully placed (MR conditional). Clip economics analyst: [employer]. There was no bleeding at the end [...] 7:21 AM Procedure Code(s): --- Professional --- 62576, Colonoscopy, flexible; with removal of tumor(s), polyp(s), or other lesion(s) by snare technique 56624, 59, Colonoscopy, flexible; with biopsy, single or multiple Diagnosis Code(s): --- Professional --- Z12.11, Encounter for screening for malignant neoplasm of colon K64.8, Other hemorrhoids D12.2, Benign neoplasm of ascending colon D12.0, Benign neoplasm of cecum D12.5, Benign neoplasm of sigmoid colon D12.4, Benign neoplasm of descending colon D12.3, Benign neoplasm of transverse colon (hepatic flexure orsplenic flexure) CPT copyright 2020 [employer]. All rights reserved. The codes documented in this report are preliminary and upon manager corporate responsibility reviewmay be revised to meet current compliance requirements. Recognized by the [employer] for promoting quality in endoscopy Elba Pineda MD ENDOSCOPY PROCEDURES Final Result from Last 3 Months or Most Recently Relevant to Health Maintenance Insurance MEDICARE [facility]CIAL [facility] MEDICARE COMMERCIAL GENERIC MEDICARE COMMERCIAL GENERIC Advance Directives For more information, please contact: [phone] * Full Code (Latest Code Status on File) Date Activated Date Inactivated Comments 11/20/2024 7:08 AM 11/20/2024 1:41 PM * Full Code Date Activated Date Inactivated Comments 11/20/2024 7:08 AM 11/20/2024 7:08 AM Care Teams Sheet Metal Supervisor Relationship Specialty Start Date End Date Sg Tamez MD PCP - General 06/03/14
--- NOTE | 2025-08-20 15:09 | WPDSLEEPSTUD ---
Sleep Study Date of Study: 07/30/25 Ordering Provider: Sg Tamez, Interpreting Physician: Cleo Doran DO Sleep Study Type: CPAP Titration Height: 1.73 m Weight: 85.729 kg Body Mass Index: 28.7 Neck Circumference (inches): 15 [place]: 14 Reason for Sleep Study Daytime hypersomnia Sleep History The patient is a 70-year-old male who had a sleep study ordered by his primary care physician for the evaluation of sleep apnea. The patient denies awakening from sleep short of breath. He occasionally awakens at night with heartburn, belching, or cough. He frequently snores, and it is often loud enough that others complain. He occasionally has trouble sleeping when he has a cold. He denies waking up gasping for air throughout the night. He frequently has breathing problems at night observed by himself or others. He rarely sweats excessively at night. He denies having heart palpitations or irregular heartbeats during the night. He frequently falls asleep during the day and while driving. He denies sleep paralysis, cataplexy, and hypnagogic/hypnopompic hallucinations. He denies having trouble at school or work due to sleepiness. He denies feeling afraid of going to sleep. He denies having nightmares. He rarely remembers his dreams. He rarely has thoughts racing through his mind. He denies feeling sad or depressed. He rarely has anxiety. He denies having muscular tension. He occasionally notices parts of his body jerk. He denies kicking during the night. He denies having crawling and aching feelings in his legs and denies having leg pain during the night. He denies grinding his teeth during sleep and denies awakening with morning jaw pain. He is frequently bothered by pain during the day and occasionally awakened by pain during the night. He occasionally wakes up feeling stiff in the morning. He denies waking up with sore or aching muscles. He denies waking up with pain in the neck, spine, and other joints. He goes to bed at 7:30 PM every night. He is able to fall asleep relatively quickly. He wakes up 3 to 5 times throughout the night to urinate, and it can take him 1 to 2 hours to fall back asleep. He wakes up at 3 AM every morning. He will stay in bed for 30 minutes after waking up in the morning. He currently lives with his . He denies consuming any caffeinated beverages within 2 hours of bedtime. He denies engaging in physical exercise before bedtime. 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 Gender identity (if verbalized by the patient): Male Medications Home Medications ?Medication ?Instructions ?Recorded ?Confirmed ?Type atorvastatin 10 mg tablet 10 mg PO DAILY 12/06/19 05/16/25 History warfarin 5 mg tablet 5 mg PO DAILY 12/06/19 05/16/25 History levothyroxine 50 mcg tablet 50 mcg PO DAILY 03/22/20 05/16/25 History albuterol sulfate 90 mcg/actuation 2 puff inhalation QID PRN 05/13/25 05/16/25 Rx aerosol inhaler shortness of breath or wheezing #8.5 grams amoxicillin 500 mg tablet 1,000 mg (2 x 500 mg) PO Q8H #42 05/13/25 05/16/25 Rx tabs doxycycline hyclate 100 mg capsule 100 mg PO Q24H 05/13/25 05/16/25 History prednisone 20 mg tablet 40 mg (2 x 20 mg) PO BID #10 tabs 05/13/25 05/16/25 Rx Sleep Procedure A full night CPAP Titration using the PixelSteam multi-channel system recorded the standard physiologic parameters including EEG, EOG, submentalis EMG, anterior tibialis EMG, EKG, body position, nasal and oral airflow using nasal pressure sensor and thermistor.? Respiratory parameters of chest and abdominal movements were recorded with Respiratory Inductance Plethysmography belts. Oxygen saturation was recorded by pulse oximetry. Video monitoring was also performed. Sleep stages, periodic limb movements, and EEG arousals were scored in 30 second epochs according to the criteria of the AASM Scoring Manual. The Apnea-Hypopnea Index was calculated using CMS guidelines for definition of hypopnea with 4% O2 desaturations while scoring respiratory events. Sleep Architecture The total recording time was 489.7 minutes.? The total sleep time was 387.0 minutes. Sleep latency was 4.0 minutes. REM latency was 127.5 minutes. Sleep efficiency was 79.0%. The patient had 71 awakenings for an awakening index of 11.0. Wake after Sleep Onset time was 98.5 minutes. The patient spent 23.0 minutes, 5.9% of total sleep time in Stage N1. The patient spent 228.5 minutes, 59.0% in Stage N2. The patient spent 80.0 minutes, 20.7% in Stage N3. The patient spent 55.5 minutes, 14.3% in Stage REM. Respiratory Analysis The patient had 26 hypopneas, 53 obstructive apneas, 21 mixed apneas, and 72 central apneas for an overall Apnea Hypopnea Index of 26.7 events per hour. The REM Apnea Hypopnea Index was 17.3. The NREM Apnea Hypopnea Index was 28.2. The patient had a Central Apnea Hypopnea Index of 11.2. There was no evidence of Bill-Donaldson Respirations. The patient was started on CPAP 4 cm H2O with EPR of 2 and titrated to CPAP 16 cm H2O with EPR of 3. The patient was able to fall asleep starting on CPAP 4 cm H2O with EPR of 2. The patient was able to achieve REM sleep on CPAP 10 cm H2O with EPR of 3. On CPAP 15 cm H2O with EPR of 3, the patient spent 80 minutes in NREM and 1.5 minutes in REM with 6 obstructive apneas, 2 central apneas, 3 mixed apneas and 2 hypopneas, resulting in an AHI of 9.6. The patient had a sleep efficiency of 92.6% on this pressure setting. Arousals There were 188 total arousals for an arousal index of 29.1. There were 75 spontaneous arousals for an index of 11.6. ?There were 100 arousals due to respiratory events for an index of 15.5. There were 0 arousals due to periodic limb movements for an index of 0.? There were 22 arousals due to isolated limb movements for an index of 3.4. Periodic Limb Movements The patient had 28 isolated limb movements with an index of 4.3. The patient had 0 periodic limb movements with index of 0. Patient had a total of 28 limb movements with a total limb movement index of 4.3. Oximetry Data The patient had an average oxygen saturation of 95.0% in sleep with a minimum oxygen saturation of 83.0% and a maximum oxygen saturation of 99.0%. The patient had 118 oxygen desaturations that were 4% or greater resulting in an Oxygen Desaturation Index of 18.3.? The patient spent 4.5 minutes, 0.9% of total sleep time with an oxygen saturation below 88%. Snoring Profile Mild to moderate snoring was present in the beginning of the study. The snoring resolved once the patient was titrated to CPAP 13 cm H2O with EPR of 3. Cardiac Profile The EKG showed normal sinus rhythm with rare PVCs and intermittent bradycardia (HR <40 bpm). The patient had an average pulse rate of 43.3 bpm with a minimum pulse rate of 36.0 bpm and a maximum pulse rate of 58.0 bpm. ? EEG Profile No signs of seizure activity seen. Assessment and Plan Assessment and Plan (1) Mixed sleep apnea: Code(s): G47.39 - Other sleep apnea Status: Acute Assessment and Plan: In the baseline portion of the study, the patient had an overall AHI of 26.7 with desaturation down to 83%. This is consistent with moderate sleep apnea. The patient had a central apnea index of 11.2, which is elevated (normal <5). No Chyene-Donaldson respirations were seen. The patient was started on CPAP 4 cm H2O with EPR of 2 and titrated to CPAP 16 cm H2O with EPR of 3. The lowest residual AHI was 9.6. I recommend that the patient be prescribed CPAP 15 cm H2O with EPR of 3, size medium Resmed AirTouch F20 full face mask, CPAP filters/heated tubing tubing and heated humidity. If the patient's compliance data at 2-3 months shows a residual AHI >5, the patient may need another in-lab study. This should be used with all episodes of sleep.? Compliance should be reviewed within 31-90 days of starting therapy for usage greater than 4 hours per night greater than 70% of the nights. The patient should be asked about symptoms such as?excessive daytime sleepiness, quality of sleep, decreased nocturia, increased?mental functioning such as memory, mood, and concentration. Data The data obtained during this sleep study is adequate for interpretation. Certification This sleep study has been reviewed by a board certified sleep medicine physician.
[2025-08-21 07:49] VITALS: BMI 28.7
== END 2025-07-31 06:10 | disposition home or self-care (01) ==
PROVIDERS: PCP Internal Medicine; Visit Provider Internal Medicine
DX: G47.39 Other sleep apnea (principal)
CPT/HCPCS: 95811